=== PATIENT | female | born 1990 | race Caucasian/White ===

== ENCOUNTER 2017-05-22 09:55 | Emergency (ER) | payer BC, MEDICAID ==
[2017-05-22 10:01] VITALS: BP 142/95; PULSE 74; RESP 18; TEMP 97.6
--- NOTE | 2017-05-22 10:35 | ED ---
Allergic Reaction HPI - General Chief complaint: Allergic Reaction Stated complaint: facial swelling and kayla Time Seen by Provider: 05/22/17 10:12 Source: patient, RN notes reviewed Mode of arrival: ambulatory Limitations: no limitations - History of Present Illness Initial Comments: This is a 26-year-old female history presents with complaints of swelling to her lips and her eyelids. 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 She is not sure of anything new he thinks possibly latex ALLERGIES that she has problems with the banding around her underwear. She also states she reacts to Band-Aids when they are placed on her. She states she got better then after working started developing hives again. She's not sure what may be causing. She's never had this problem before. No family history of problems like this. MD Complaint: allergic reaction, hives, facial swelling - Related Data Home Medications Medication Instructions Recorded Confirmed Acyclovir [Zovirax] 400 mg PO QID 12/16/14 12/16/14 Citalopram Hydrobromide [CeleXA] 10 mg PO DAILY 12/16/14 12/16/14 Previous Rx's Medication Instructions Recorded Naproxen [Naprosyn] 500 mg PO Q12HR #30 tab 12/16/14 Orphenadrine [Norflex] 100 mg PO Q12H #20 tablet.er 12/16/14 hydrOXYzine PAMOATE [Vistaril] 25 mg PO TID PRN #15 cap 05/22/17 methylPREDNISolone Dose Pack 4 mg PO DIRECTED #21 package 05/22/17 [Medrol Dose Pack] Allergies Allergy/AdvReac Type Severity Reaction Status Date / Time No Known Allergies Allergy Verified 05/22/17 10:01 Review of Systems ROS Statement: Those systems with pertinent positive or pertinent negative responses have been documented in the HPI. ROS Other: All systems not noted in ROS Statement are negative. Past Medical History Additional Past Medical History / Comment(s): endometriosis, genital herpes History of Any Multi-Drug Resistant Organisms: None Reported Additional Past Surgical History / Comment(s): laparoscopy Past Psychological History: Depression Smoking Status: Never smoker Past Alcohol Use History: None Reported Past Drug Use History: None Reported General Exam - General Exam Comments Initial Comments: This is a well-developed well-nourished awake alert oriented 3 female Limitations: no limitations General appearance: alert, in no apparent distress Head exam: Present: atraumatic, normocephalic, normal inspection Eye exam: Present: PERRL, EOMI, other (The patient does demonstrate a small of periorbital swelling.) ENT exam: Present: normal oropharynx, mucous membranes moist, other (The upper and lower lip is somewhat edematous) Neck exam: Present: normal inspection, other (No stridor JVD or bruits) Respiratory exam: Present: normal lung sounds bilaterally. Absent: respiratory distress, wheezes, rales, rhonchi, stridor Cardiovascular Exam: Present: regular rate, normal rhythm, normal heart sounds. Absent: systolic murmur, diastolic murmur, rubs, gallop, clicks Extremities exam: Present: normal inspection, full ROM, normal capillary refill. Absent: tenderness, pedal edema, joint swelling, calf tenderness Back exam: Present: normal inspection Neurological exam: Present: alert, oriented X3, CN II-XII intact Psychiatric exam: Present: normal affect, normal mood Skin exam: Present: warm, dry, other (Evidence of first-degree sunburn to the chest extremities) Course Vital Signs 05/22/17 09:58 Temperature 97.6 F Pulse Rate 74 Respiratory 18 Rate Blood Pressure 142/95 O2 Sat by Pulse 100 Oximetry Medical Decision Making - Medical Decision Making No further workup is indicated at this time. The patient had previously been seen at [facility] and given prescriptions for Quynh and Zantac. Patient will also get a prescription from [place] a Medrol Dosepak as well as Vistaril for itching. She is follow-up with . they did ask about ALLERGY testing and they were referred to their family doctor or to an smash hand. We did also discuss cold versus hot environments. Disposition Clinical Impression: Allergic reaction Disposition: HOME SELF-CARE Condition: Good Instructions: Allergies (ED) Prescriptions: hydrOXYzine PAMOATE [Vistaril] 25 mg PO TID PRN #15 cap PRN Reason: Itching methylPREDNISolone Dose Pack [Medrol Dose Pack] 4 mg PO DIRECTED #21 package Referrals: Sandeep Muniz MD [Primary Care Provider] - 1-2 days
== END 2017-05-22 10:38 | disposition home or self-care (01) ==
LOC: EC 09:55
DX: T78.40XA Allergy, unspecified, initial encounter (principal); F32.9 Major depressive disorder, single episode, unspecified; Z79.899 Other long term (current) drug therapy; Z79.1 Long term (current) use of non-steroidal anti-inflammatories (NSAID); Z91.048 Other nonmedicinal substance allergy status
CPT/HCPCS: 99284

== ENCOUNTER → 2017-05-28 | Outpatient (CLI) | payer MEDICAID ==
[2017-05-28 14:04] LABS: Basophils % (A) 0 %; CH 26.5; CHCM 32.4; Eosinophils % (A) 0 %; HCT 37.1 % (34.0-46.0); HDW 2.34; HGB 12.6 gm/dL (11.4-16.0); Luc # (Auto) 0.17; Luc % (Auto) 2; Lymphocytes % (A) 34 %; MCH 27.9 pg (25.0-35.0); Mean Platelet Volume 6.8; Monocytes # (A) 0.5 k/uL (0-1.0); Monocytes % (A) 6 %; Neutrophils # (A) 5.1 k/uL (1.3-7.7); Neutrophils % (A) 58 %; RBC 4.53 m/uL (3.80-5.40); RDW 12.2 % (11.5-15.5); WBC 8.8 k/uL (3.8-10.6); WBC (Perox) 8.89
[2017-05-28 14:23] LABS: ALT 33 U/L (9-52); AST 29 U/L (14-36); Alkaline Phosphatase 59 U/L (38-126); Anion Gap 11 mmol/L; Blood Urea Nitrogen 9 mg/dL (7-17); Calcium 9.3 mg/dL (8.4-10.2); Carbon Dioxide 24 mmol/L (22-30); Chloride 105 mmol/L (98-107); Glucose 86 mg/dL (74-99); Non-African American GFR(MDRD) >60 (>60 ml/min/1.73 sqM); Potassium 4.6 mmol/L (3.5-5.1); Sodium 140 mmol/L (137-145); Total Bilirubin 0.3 mg/dL (0.2-1.3); Total Protein 6.7 g/dL (6.3-8.2)
[2017-05-31 13:07] LABS: Beef IgE <0.35 kU/L (<0.35); Beef IgE Class CLASS 0; Chicken IgE Class CLASS 0; Cow's Milk IgE Class CLASS 0; Egg White IgE <0.35 kU/L (<0.35); Latex IgE Class CLASS 0; Peanut IgE <0.35 kU/L (<0.35); Pork IgE Class CLASS 0; Potato IgE <0.35 kU/L (<0.35); Potato IgE Class CLASS 0; Soybean IgE <0.35 kU/L (<0.35); Yeast Bakers/Brew IgE <0.35 kU/L (<0.35); Yeast Bakers/Brew IgE Class CLASS 0
== END | disposition home or self-care (01) ==
LOC: LABWHC1 12:46
PROVIDERS: ATTEND Otolaryngology
DX: Z00.00 Encounter for general adult medical examination without abnormal findings (principal); L50.0 Allergic urticaria
CPT/HCPCS: 36415; 80053; 85025; 86003

== ENCOUNTER 2017-07-06 16:55 | Emergency (ER) | payer MEDICAID ==
[2017-07-06 17:00] VITALS: PULSE 83; TEMP 98.4
[2017-07-06] MEDS ORDERED: AMOXIC-POT CLAV 875-125MG 1 EACH TAB PO STA (17:06)
--- NOTE | 2017-07-06 17:08 | ED ---
Skin/Abscess/FB HPI - General Chief complaint: Skin/Abscess/Foreign Body Stated complaint: Dog Bite Time Seen by Provider: 07/06/17 17:01 Source: patient, RN notes reviewed Mode of arrival: ambulatory Limitations: no limitations - History of Present Illness Initial comments: This a 26-year-old female presented emergency department with chief complaint dog bite. Patient states that she was at a known house and states the dog bit her. Patient states she has a bite allie to her right hand fourth digit and to her left wrist. 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 Patient states that she has full range of motion of her digits with no paresthesias. Patient has NO KNOWN DRUG ALLERGIES. - Related Data Home Medications Medication Instructions Recorded Confirmed Acyclovir [Zovirax] 400 mg PO QID 12/16/14 12/16/14 Citalopram Hydrobromide [CeleXA] 10 mg PO DAILY 12/16/14 12/16/14 Previous Rx's Medication Instructions Recorded Naproxen [Naprosyn] 500 mg PO Q12HR #30 tab 12/16/14 Orphenadrine [Norflex] 100 mg PO Q12H #20 tablet.er 12/16/14 hydrOXYzine PAMOATE [Vistaril] 25 mg PO TID PRN #15 cap 05/22/17 methylPREDNISolone Dose Pack 4 mg PO DIRECTED #21 package 05/22/17 [Medrol Dose Pack] Amoxicillin/Potassium Clav 1 tab PO Q12HR #20 tab 07/06/17 [Augmentin 875-125 Tablet] Allergies Allergy/AdvReac Type Severity Reaction Status Date / Time No Known Allergies Allergy Verified 07/06/17 17:00 Review of Systems ROS Statement: Those systems with pertinent positive or pertinent negative responses have been documented in the HPI. ROS Other: All systems not noted in ROS Statement are negative. Past Medical History Additional Past Medical History / Comment(s): endometriosis, genital herpes History of Any Multi-Drug Resistant Organisms: None Reported Additional Past Surgical History / Comment(s): laparoscopy Past Psychological History: Depression Smoking Status: Never smoker Past Alcohol Use History: None Reported Past Drug Use History: None Reported General Exam General appearance: alert, in no apparent distress Head exam: Present: atraumatic, normocephalic, normal inspection Respiratory exam: Present: normal lung sounds bilaterally. Absent: respiratory distress, wheezes, rales, rhonchi, stridor Cardiovascular Exam: Present: regular rate, normal rhythm, normal heart sounds. Absent: systolic murmur, diastolic murmur, rubs, gallop, clicks Extremities exam: Present: other (Right hand fourth digit there is 2 puncture was noted to the distal tip patient's full range of motion Refill less than 2 seconds no discoloration no decreased sensation patient has a small superficial puncture wound noted to the left wrist patient has full range of motion no active bleeding) Course Vital Signs 07/06/17 16:58 Temperature 98.4 F Pulse Rate 83 Respiratory 137 H Rate O2 Sat by Pulse 100 Oximetry Medical Decision Making - Medical Decision Making 26-year-old female presented emergency department for dog bite. Her tetanus is up-to-date. The dog is not a stray and not loose. The patient states the dog can be observed and quarantine for signs and symptoms of rabies this is a low likelihood. Patient is advised that she needs to the dog bite form here and have close follow-up. Patient be discharged on Augmentin. Disposition Clinical Impression: Dog bite Disposition: HOME SELF-CARE Condition: Stable Instructions: Animal Bite (ED) Additional Instructions: Please return to the Emergency Department if symptoms worsen or any other concerns. Prescriptions: Amoxicillin/Potassium Clav [Augmentin 875-125 Tablet] 1 tab PO Q12HR #20 tab Referrals: Sandeep Muniz MD [Primary Care Provider] - 1-2 days Time of Disposition: 17:08
[2017-07-06 17:10] VITALS: BP 137/82; RESP 18
== END 2017-07-06 17:20 | disposition home or self-care (01) ==
LOC: EC 16:55
DX: S61.552A Open bite of left wrist, initial encounter (principal); S61.254A Open bite of right ring finger without damage to nail, initial encounter; F32.9 Major depressive disorder, single episode, unspecified; Z79.899 Other long term (current) drug therapy; W54.0XXA Bitten by dog, initial encounter
CPT/HCPCS: 99283

== ENCOUNTER → 2017-07-28 | Outpatient (CLI) | payer MEDICAID ==
[2017-07-28 14:27] LABS: Basophils % (A) 0 %; CH 27.2; CHCM 33.1; Eosinophils # (A) 0.1 k/uL (0-0.7); Eosinophils % (A) 1 %; Luc # (Auto) 0.14; Luc % (Auto) 2; Lymphocytes # (A) 2.3 k/uL (1.0-4.8); Lymphocytes % (A) 27 %; MCH 26.8 pg (25.0-35.0); MCHC 32.5 g/dL (31.0-37.0); MCV 82.5 fL (80.0-100.0); Monocytes # (A) 0.3 k/uL (0-1.0); Monocytes % (A) 4 %; Neutrophils # (A) 5.5 k/uL (1.3-7.7); Neutrophils % (A) 65 %; RBC 4.85 m/uL (3.80-5.40); RDW 14.9 % (11.5-15.5); WBC 8.4 k/uL (3.8-10.6); WBC (Perox) 8.03
[2017-07-28 16:01] LABS: Erythrocyte Sedimentation Rate 8 mm/hr (0-20)
[2017-07-29 00:45] LABS: Gliadin AB IgA, Deaminated NEGATIVE (NEGATIVE); Gliadin AB IgG, Deaminated NEGATIVE (NEGATIVE); Gliadin AB IgG, Unit <0.4 U/mL; Tis Transglutaminase IgA Unit <0.5 AI; Tis Transglutaminase IgG Unit <0.8 U/mL
== END | disposition home or self-care (01) ==
LOC: LABWHC1 13:45
PROVIDERS: ATTEND Allergy & Immunology
DX: K21.9 Gastro-esophageal reflux disease without esophagitis (principal); L50.8 Other urticaria
CPT/HCPCS: 36415; 82784; 83516; 85025; 85652; 86162; 86376; 86800

== ENCOUNTER 2017-09-30 22:35 | Emergency (ER) | payer MEDICAID, OTHER ==
[2017-09-30 22:46] VITALS: BP 127/72; PULSE 51; RESP 18; TEMP 98.3
[2017-09-30] MEDS ORDERED: IBUPROFEN 600 MG TAB PO STA (22:50)
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
--- NOTE | 2017-09-30 23:16 | XR ---
EXAMINATION TYPE: XR facial bones complete DATE OF EXAM: 09/30/2017 COMPARISON: NONE HISTORY: Facial injury and pain TECHNIQUE: 3 views FINDINGS: There is some mucosal thickening in the right maxillary sinus. Orbital margins appear intac t. Maxilla appears intact. Nasal bone appears intact. IMPRESSION: Mucosal thickening in the right maxillary sinus on the superior lateral and inferior wall s. This probably relates to sinusitis but a blowout fracture cannot be entirely excluded.
[2017-09-30] MEDS ORDERED: ONDANSETRON ODT 4 MG TAB PO STA (23:29)
== END 2017-09-30 23:39 | disposition home or self-care (01) ==
LOC: EC 22:35
DX: S00.83XA Contusion of other part of head, initial encounter (principal); F32.9 Major depressive disorder, single episode, unspecified; Z79.899 Other long term (current) drug therapy; Z88.1 Allergy status to other antibiotic agents; Y04.2XXA Assault by strike against or bumped into by another person, initial encounter; Y92.239 Unspecified place in hospital as the place of occurrence of the external cause; Y99.0 Civilian activity done for income or pay
CPT/HCPCS: 70150; 99283

== ENCOUNTER 2017-12-04 17:01 | Emergency (ER) | payer MEDICAID ==
[2017-12-04 17:20] VITALS: TEMP 97
--- NOTE | 2017-12-04 18:00 | US ---
EXAMINATION TYPE: US OB <=14 wks transvag DATE OF EXAM: 12/04/2017 COMPARISON: NONE CLINICAL HISTORY: 27-year-old female pain. Pt states heavy vaginal bleeding and cramping that started today EXAM PERFORMED: Transvaginal (TV) and Transabdominal (TA) FINDINGS: GESTATIONAL AGE / DATING Physician Established: Not yet established Dates by LMP: (6 weeks/2 days) EDC: 07/28/2018 Dates by First Scan: No prior Dates by Current Scan for: No IUP visualized MATERNAL ANATOMY Uterus: 7.4 x 3.6 x 4.2 cm Right Ovary: 3.0 x 2.1 x 2.8 cm Left Ovary: 2.0 x 1.5 x 1.1 cm Post CDS / Adnexa: wnl Presence of free fluid: No Presence of corpus luteal cyst: Right Ovary= 1.4 x 0.9 x 1.1 cm GESTATION / SURVEY IUP: No IUP seen at this time, Endo thickened at 1.5 cm Date of LMP: 10/21/2017 Beta HcG (if available): Not available at this time IMPRESSION: No visualized intrauterine at this time. Endometrial stripe measures at the upper limits of normal in thickness. Differential considerations include normal early intrauterine , failed , and nonvisualized ectopic. Recommended serial beta-hCG and ultrasound follow-up to ensure the appearance of a normal pole with cardiac activity.
--- NOTE | 2017-12-04 18:07 | ED ---
Female Urogenital HPI - General Chief complaint: Urogenital Stated complaint: Vaginal Bleeding, Cramping-6 wks preg Time Seen by Provider: 12/04/17 17:21 Source: patient, RN notes reviewed, old records reviewed Mode of arrival: ambulatory Limitations: no limitations - History of Present Illness Initial comments: Patient is a 27-year-old female presents today chief complaint of vaginal bleeding and spotting that started at 3 PM yesterday evening. She reports it's been croup progressively worse today and she complains of cramping. She reports that she is currently 6 weeks . She states she follows up with Dr. Malloy. She states that this is her first . Patient denies any chest pain, shortness of breath, nausea, vomiting, back pain, dysuria or hematuria or changes in bowel habits. - Related Data Home Medications Medication Instructions Recorded Confirmed Pnv No.95/Ferrous Fum/Folic AC 1 tab PO DAILY 12/04/17 12/04/17 [ Multivitamin Tablet] Previous Rx's Medication Instructions Recorded traMADol HCl [Ultram] 50 mg PO Q4H PRN #12 tab 12/04/17 Allergies Allergy/AdvReac Type Severity Reaction Status Date / Time vancomycin Allergy Swelling Verified 12/04/17 18:22 Review of Systems ROS Statement: Those systems with pertinent positive or pertinent negative responses have been documented in the HPI. ROS Other: All systems not noted in ROS Statement are negative. Past Medical History Additional Past Medical History / Comment(s): endometriosis, genital herpes History of Any Multi-Drug Resistant Organisms: None Reported Additional Past Surgical History / Comment(s): laparoscopy Past Psychological History: Depression Smoking Status: Never smoker Past Alcohol Use History: None Reported Past Drug Use History: None Reported General Exam - General Exam Comments Initial Comments: This is a 27-year-old female. Patient appears to be very distraught. Limitations: no limitations General appearance: alert Head exam: Present: atraumatic Eye exam: Present: normal appearance, PERRL, EOMI. Absent: scleral icterus, conjunctival injection, periorbital swelling ENT exam: Present: normal exam, mucous membranes moist Neck exam: Present: normal inspection. Absent: tenderness, meningismus, lymphadenopathy Respiratory exam: Present: normal lung sounds bilaterally. Absent: respiratory distress, wheezes, rales, rhonchi, stridor External exam: Present: normal external exam Speculum exam: Present: vaginal bleeding (Patient has significant vaginal bleeding, clots noted. Cervix appears somewhat dilated.). Absent: normal speculum exam, erythema, vaginal discharge By manual exam: Present: normal by manual exam. Absent: cervical motion tenderness, adnexal tenderness Extremities exam: Present: normal inspection Back exam: Present: normal inspection Neurological exam: Present: alert, oriented X3, CN II-XII intact Psychiatric exam: Present: normal affect, normal mood Skin exam: Present: warm, dry, intact, normal color. Absent: rash Course Vital Signs 12/04/17 12/04/17 17:15 19:41 Temperature 97.0 F L Pulse Rate 88 64 Respiratory 16 20 Rate Blood Pressure 127/70 117/56 O2 Sat by Pulse 100 99 Oximetry Medical Decision Making - Medical Decision Making Patient is a 27-year-old female presents today chief complaint of vaginal bleeding and spotting that started at 3 PM yesterday evening. She reports it's been croup progressively worse today and she complains of cramping. Patient hcg is 62. She has significant bleeding and clotting noted. Cervix appeared minimal dilation and clots through os during speculum exam. US shwos no IUP and thickened endometrium. Likely related to miscarriage. Patient is A - blood type , given rhogam. Discussed repeat Hcg. Discussed not typical number for 6 weeks in . Patient understands treatment plan and follow up with OBGYN. Return paramters discussed. Discharged with ultram for cramping pain. She also relates while in ED she passed large clot which she believes to be the fetus. - Lab Data Lab Results 12/04/17 12/04/17 12/04/17 Range/Units 17:50 17:50 18:45 HCG, Quant 69.2 mIU/mL Urine Color Yellow Urine Appearance Clear (Clear) Urine pH 8.0 (5.0-8.0) Ur Specific [place] 1.007 (1.001-1.035) Urine Protein Trace H (Negative) Urine Glucose (UA) Negative (Negative) Urine Ketones Negative (Negative) Urine Blood Large H (Negative) Urine Nitrite Negative (Negative) Urine Bilirubin Negative (Negative) Urine Urobilinogen <2.0 (<2.0) mg/dL Ur Leukocyte Esterase Trace H (Negative) Urine RBC >182 H (0-5) /hpf Ur Squamous Epith Cells 1 (0-4) /hpf Blood Type A Negative Blood Type Recheck No Antibody Screen NEGATIVE - Radiology Data Radiology results: report reviewed US shows thickened endometrium. No heart tones or IUP noted. Disposition Clinical Impression: Miscarriage Disposition: HOME SELF-CARE Condition: Good Instructions: Miscarriage (ED) Additional Instructions: Patient advised to follow-up with primary care physician and [employer]. Repeat her blood work in 2 days. Return to emergency department if any alarming signs or symptoms occur. Prescriptions: traMADol HCl [Ultram] 50 mg PO Q4H PRN #12 tab PRN Reason: Pain Referrals: Sandeep Muniz MD [Primary Care Provider] - 1-2 days Time of Disposition: 19:23
[2017-12-04 19:02] LABS: Appearance,Urine Clear (Clear); Bilirubin,Urine Negative (Negative); Blood,Urine Large (Negative); Color,Urine Yellow; Glucose,Urine (UA) Negative (Negative); Ketones,Urine Negative (Negative); Leukocyte Esterase,Urine Trace (Negative); Nitrite,Urine Negative (Negative); Protein,Urine Trace (Negative); RBC,Urine >182 /hpf (0-5); Specific Gravity,Urine 1.007 (1.001-1.035); Squamous Epithelial Cell,Urine 1 /hpf (0-4); Urobilinogen,Urine <2.0 mg/dL (<2.0)
[2017-12-04] MEDS ORDERED: MORPHINE SULFATE 5 MG/ML SYRINGE IVP STA (19:07)
[2017-12-04] MEDS ORDERED: Rhogam IMMUNE GLOBULIN 1,500 UNIT/1 ML IM ONE (19:41)
[2017-12-04 19:42] VITALS: BP 117/56; PULSE 64; RESP 20
== END 2017-12-04 19:50 | disposition home or self-care (01) ==
LOC: EC 17:01
DX: O03.9 Complete or unspecified spontaneous abortion without complication (principal); Z79.899 Other long term (current) drug therapy; Z88.1 Allergy status to other antibiotic agents
CPT/HCPCS: 99284; 96374; 96372; 36415; 86900; 86901; 86850; 81001; 84702; 76801; 76817; J2791; J2274

== ENCOUNTER → 2017-12-06 | Outpatient (CLI) | payer MEDICAID | END | disposition home or self-care (01) | LOC: LABWHC1 12:24 | PROVIDERS: ATTEND Physician Assistant Medical | DX: O20.0 Threatened abortion (principal) | CPT/HCPCS: 36415; 84702 ==

== ENCOUNTER → 2017-12-13 | Outpatient (CLI) | payer MEDICAID | END | disposition home or self-care (01) | LOC: LABWHC1 10:57 | PROVIDERS: ATTEND Obstetrics & Gynecology Obstetrics | DX: O03.9 Complete or unspecified spontaneous abortion without complication (principal) | CPT/HCPCS: 36415; 84702 ==

== ENCOUNTER → 2018-02-14 | Outpatient (CLI) | payer MEDICAID | END | disposition home or self-care (01) | LOC: LABWHC1 10:36 | PROVIDERS: ATTEND Obstetrics & Gynecology Obstetrics | DX: O20.0 Threatened abortion (principal); Z3A.00 Weeks of gestation of pregnancy not specified | CPT/HCPCS: 36415; 84702 ==

== ENCOUNTER → 2018-03-15 | Outpatient (CLI) | payer MEDICAID | END | disposition home or self-care (01) | LOC: LABWHC1 09:45 | PROVIDERS: ATTEND Obstetrics & Gynecology Obstetrics | DX: O20.0 Threatened abortion (principal); O26.20 Pregnancy care for patient with recurrent pregnancy loss, unspecified trimester; Z3A.00 Weeks of gestation of pregnancy not specified | CPT/HCPCS: 36415; 84144; 84702 ==

== ENCOUNTER → 2018-03-17 | Outpatient (CLI) | payer MEDICAID | LOC: LABWHC1 07:46 | PROVIDERS: ATTEND Obstetrics & Gynecology Obstetrics | DX: O20.0 Threatened abortion (principal); Z3A.00 Weeks of gestation of pregnancy not specified | CPT/HCPCS: 36415; 84702 ==

== ENCOUNTER → 2018-03-21 | Outpatient (CLI) | payer MEDICAID | END | disposition home or self-care (01) | LOC: LABWHC1 15:37 | PROVIDERS: ATTEND Obstetrics & Gynecology Obstetrics | DX: O20.0 Threatened abortion (principal); Z3A.00 Weeks of gestation of pregnancy not specified | CPT/HCPCS: 36415; 84702 ==

== ENCOUNTER 2018-03-28 07:52 | Emergency (ER) | payer MEDICAID ==
[2018-03-28 07:56] VITALS: RESP 18; TEMP 97.3
--- NOTE | 2018-03-28 08:19 | ED ---
General Adult HPI - General Chief complaint: Abdominal Pain Stated complaint: 6wks preg, cramping Time Seen by Provider: 03/28/18 08:12 Source: patient, RN notes reviewed, old records reviewed Mode of arrival: ambulatory Limitations: no limitations - History of Present Illness Initial comments: 27-year-old female presenting to the emergency room today with a chief complaint of right sided abdominal pain on and off for last few days. She describes it as an intermittent type pain located on the right side has been more constant since 1 AM last night. 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 She states that she did have a miscarriage at approximately 6 weeks back in November 2017. She states last menstrual cycle She is approximately 6 weeks . Denies vaginal bleeding or discharge. Denies any other complaints. Patient denies any recent fever, chills, shortness of breath, chest pain, back pain, nausea or vomiting, numbness or tingling, dysuria or hematuria, constipation or diarrhea, headaches or visual changes, or any other complaints. - Related Data Home Medications Medication Instructions Recorded Confirmed Pnv No.95/Ferrous Fum/Folic AC 1 tab PO DAILY 12/04/17 03/28/18 [ Multivitamin Tablet] Allergies Allergy/AdvReac Type Severity Reaction Status Date / Time vancomycin Allergy Swelling Verified 03/28/18 08:36 Review of Systems ROS Statement: Those systems with pertinent positive or pertinent negative responses have been documented in the HPI. ROS Other: All systems not noted in ROS Statement are negative. Past Medical History Additional Past Medical History / Comment(s): endometriosis, genital herpes History of Any Multi-Drug Resistant Organisms: None Reported Additional Past Surgical History / Comment(s): laparoscopy Past Psychological History: Depression Smoking Status: Never smoker Past Alcohol Use History: None Reported Past Drug Use History: None Reported General Exam - General Exam Comments Initial Comments: General: The patient is awake and alert, in no distress, and does not appear acutely ill. Eye: Pupils are equal, round and reactive to light, extra-ocular movements are intact. No nystagmus. There is normal conjunctiva bilaterally. No signs of icterus. Ears, nose, mouth and throat: There are moist mucous membranes and no oral lesions. Neck: The neck is supple. Cardiovascular: There is a regular rate and rhythm. No murmur, rub or gallop is appreciated. Respiratory: Lungs are clear to auscultation, respirations are non-labored, breath sounds are equal. No wheezes, stridor, rales, or rhonchi. Gastrointestinal: Abdomen soft on palpation. Mild tenderness on palpation. No rebound, guarding, CVA tenderness Musculoskeletal: Normal ROM, no tenderness. Strength 5/5. Sensation intact. Neurological: A&O x 3. CN II-XII intact, There are no obvious motor or sensory deficits. Coordination appears grossly intact. Speech is normal. Skin: Skin is warm and dry and no rashes or lesions are noted. Psychiatric: Cooperative, appropriate mood & affect, normal judgment. Limitations: no limitations Course Vital Signs 03/28/18 07:53 Temperature 97.3 F L Pulse Rate 93 Respiratory 18 Rate Blood Pressure 129/85 O2 Sat by Pulse 99 Oximetry Medical Decision Making - Medical Decision Making Patient has been reviewed discharge negative. Patient has no vaginal bleeding. Patient has 13,000 white count. Patient's beta hCG greater than 9000. Patient's ultrasound shows a 1.5 cm hypoechoic lesion surrounding right ovary vasculitic could reflect or persistent luteal cyst. Left excessive there is a 1.7 cm oval anechoic lesion adjacent to the ovary. Findings could reflect early to visual intrauterine gestation, ectopic cannot be excluded. Results were discussed with the physician Dr. Elmore who discussed with patient 's OB doctor Chris with this time states the patient may follow-up in the office tomorrow. These results were discussed with patient. Her pain is under control here in emergency room. Abdomen soft on palpation. Minimal to no pain on palpation. Patient advised that should return to emergency room if there is increased pain, bleeding. She states understanding and is in agreement. - Lab Data Result diagrams: 03/28/18 08:24 03/28/18 08:24 Lab Results 03/28/18 03/28/18 03/28/18 Range/Units 08:00 08:00 08:24 WBC (3.8-10.6) k/uL RBC (3.80-5.40) m/uL Hgb (11.4-16.0) gm/dL Hct (34.0-46.0) % MCV (80.0-100.0) fL MCH (25.0-35.0) pg MCHC (31.0-37.0) g/dL RDW (11.5-15.5) % Plt Count (150-450) k/uL Neutrophils % % Lymphocytes % % Monocytes % % Eosinophils % % Basophils % % Neutrophils # (1.3-7.7) k/uL Lymphocytes # (1.0-4.8) k/uL Monocytes # (0-1.0) k/uL Eosinophils # (0-0.7) k/uL Basophils # (0-0.2) k/uL Sodium (137-145) mmol/L Potassium (3.5-5.1) mmol/L Chloride (98-107) mmol/L Carbon Dioxide (22-30) mmol/L Anion Gap mmol/L BUN (7-17) mg/dL Creatinine (0.52-1.04) mg/dL Est GFR (CKD-EPI)AfAm (>60 ml/min/1.73 sqM) Est GFR (CKD-EPI)NonAf (>60 ml/min/1.73 sqM) Glucose (74-99) mg/dL Calcium (8.4-10.2) mg/dL Total Bilirubin (0.2-1.3) mg/dL AST (14-36) U/L ALT (9-52) U/L Alkaline Phosphatase (38-126) U/L Total Protein (6.3-8.2) g/dL Albumin (3.5-5.0) g/dL HCG, Quant 9786.3 mIU/mL Urine Color Light Yellow Urine Appearance Clear (Clear) Urine pH 6.0 (5.0-8.0) Ur Specific [place] 1.008 (1.001-1.035) Urine Protein Negative (Negative) Urine Glucose (UA) Negative (Negative) Urine Ketones Negative (Negative) Urine Blood Negative (Negative) Urine Nitrite Negative (Negative) Urine Bilirubin Negative (Negative) Urine Urobilinogen <2.0 (<2.0) mg/dL Ur Leukocyte Esterase Negative (Negative) Blood Type A Negative Blood Type Recheck No 03/28/18 03/28/18 Range/Units 08:24 08:24 WBC 13.2 H (3.8-10.6) k/uL RBC 4.49 (3.80-5.40) m/uL Hgb 12.8 (11.4-16.0) gm/dL Hct 36.7 (34.0-46.0) % MCV 81.6 (80.0-100.0) fL MCH 28.5 (25.0-35.0) pg MCHC 34.9 (31.0-37.0) g/dL RDW 12.7 (11.5-15.5) % Plt Count 339 (150-450) k/uL Neutrophils % 69 % Lymphocytes % 23 % Monocytes % 5 % Eosinophils % 2 % Basophils % 0 % Neutrophils # 9.1 H (1.3-7.7) k/uL Lymphocytes # 3.0 (1.0-4.8) k/uL Monocytes # 0.6 (0-1.0) k/uL Eosinophils # 0.2 (0-0.7) k/uL Basophils # 0.0 (0-0.2) k/uL Sodium 139 (137-145) mmol/L Potassium 4.4 (3.5-5.1) mmol/L Chloride 104 (98-107) mmol/L Carbon Dioxide 22 (22-30) mmol/L Anion Gap 13 mmol/L BUN 9 (7-17) mg/dL Creatinine 0.67 (0.52-1.04) mg/dL Est GFR (CKD-EPI)AfAm >90 (>60 ml/min/1.73 sqM) Est GFR (CKD-EPI)NonAf >90 (>60 ml/min/1.73 sqM) Glucose 90 (74-99) mg/dL Calcium 9.2 (8.4-10.2) mg/dL Total Bilirubin 0.4 (0.2-1.3) mg/dL AST 25 (14-36) U/L ALT 26 (9-52) U/L Alkaline Phosphatase 53 (38-126) U/L Total Protein 6.9 (6.3-8.2) g/dL Albumin 4.2 (3.5-5.0) g/dL HCG, Quant mIU/mL Urine Color Urine Appearance (Clear) Urine pH (5.0-8.0) Ur Specific [place] (1.001-1.035) Urine Protein (Negative) Urine Glucose (UA) (Negative) Urine Ketones (Negative) Urine Blood (Negative) Urine Nitrite (Negative) Urine Bilirubin (Negative) Urine Urobilinogen (<2.0) mg/dL Ur Leukocyte Esterase (Negative) Blood Type Blood Type Recheck Disposition Clinical Impression: Threatened miscarriage Disposition: HOME SELF-CARE Condition: Stable Instructions: Threatened Miscarriage (ED) Additional Instructions: Please follow-up with [employer] tomorrow as discussed. Please return here to the emergency room if there is increased bowel pain, bleeding or for any other concerns. Is patient prescribed a controlled substance at d/c from ED?: No Referrals: Sandeep Muniz MD [Primary Care Provider] - 1-2 days Time of Disposition: 10:19
[2018-03-28 08:31] LABS: Appearance,Urine Clear (Clear); Bilirubin,Urine Negative (Negative); Blood,Urine Negative (Negative); Color,Urine Light Yellow; Glucose,Urine (UA) Negative (Negative); Ketones,Urine Negative (Negative); Leukocyte Esterase,Urine Negative (Negative); Nitrite,Urine Negative (Negative); Protein,Urine Negative (Negative); Specific Gravity,Urine 1.008 (1.001-1.035); Urobilinogen,Urine <2.0 mg/dL (<2.0)
[2018-03-28 08:36] LABS: Basophils % (A) 0 %; Eosinophils # (A) 0.2 k/uL (0-0.7); Eosinophils % (A) 2 %; HCT 36.7 % (34.0-46.0); HGB 12.8 gm/dL (11.4-16.0); Lymphocytes % (A) 23 %; MCH 28.5 pg (25.0-35.0); MCHC 34.9 g/dL (31.0-37.0); MCV 81.6 fL (80.0-100.0); Mean Platelet Volume 7.8; Monocytes # (A) 0.6 k/uL (0-1.0); Monocytes % (A) 5 %; Neutrophils # (A) 9.1 k/uL (1.3-7.7); Neutrophils % (A) 69 %; Platelet Count 339 k/uL (150-450); RBC 4.49 m/uL (3.80-5.40); RDW 12.7 % (11.5-15.5); WBC 13.2 k/uL (3.8-10.6)
[2018-03-28 08:50] LABS: ALT 26 U/L (9-52); AST 25 U/L (14-36); Albumin 4.2 g/dL (3.5-5.0); Alkaline Phosphatase 53 U/L (38-126); Anion Gap 13 mmol/L; Blood Urea Nitrogen 9 mg/dL (7-17); Calcium 9.2 mg/dL (8.4-10.2); Carbon Dioxide 22 mmol/L (22-30); Chloride 104 mmol/L (98-107); Glucose 90 mg/dL (74-99); Potassium 4.4 mmol/L (3.5-5.1); Sodium 139 mmol/L (137-145); Total Bilirubin 0.4 mg/dL (0.2-1.3); Total Protein 6.9 g/dL (6.3-8.2)
--- NOTE | 2018-03-28 09:24 | US ---
EXAMINATION TYPE: Transabdominal DATE OF EXAM: 02/15/18 COMPARISON: NONE CLINICAL HISTORY: Pain. Intermittent right pelvic cramping for a couple of days EXAM PERFORMED: Transvaginal (TV) and Transabdominal (TA) EXAM MEASUREMENTS: GESTATIONAL AGE / DATING Physician Established: Not yet established Dates by LMP: (6 weeks/1 days) EDC: 11/20/18 Dates by First Scan: No previous this is first scan Dates by Current Scan for: GS too small to accurately measure MATERNAL ANATOMY Uterus: 8.2 x 3.4 x 5.7cm Right Ovary: 4.4 x 2.6 x 2.4cm Left Ovary: 2.7 x 1.1 x 1.3cm Post CDS / Adnexa: small amount of free fluid right adnexa adjacent to right ovary. anechoic area lef t adnexa posterior to uterus = 1.7 x 1.6 x 1.4cm Presence of free fluid: yes Presence of corpus luteal cyst: yes, complex area right ovary = 2.5 x 1.9 x 2.2cm GESTATION / SURVEY MSD: 0.8cm too small to accurately measure Yolk Sac (normal less than 6mm): 1.7mm Date of LMP: 02/13/18 Beta HcG (if available): Not available at this time Anteverted uterus is seen. Within uterus there is oval anechoic area that has rim hyperechoic [address] ructure. Findings could reflect early gestational sac and yolk sac. No pole is seen at this jenn e. Inferior to gestational sac there is small 5 mm hypoechoic area could reflect tiny subchorionic he morrhage. There is free fluid in pelvis extending towards right adnexa. Both ovaries are identified. In the right ovary there is 1.5 cm cm oval hypoechoic lesion with surrou nding vascularity could reflect corpus luteal cyst. In the left adnexa there is 1.7 cm oval anechoic lesion adjacent to ovary.. IMPRESSION: Abnormal study as detailed above, findings could reflect early to visualize intrauterine gestation, e ctopic cannot be excluded with free fluid in pelvis and left adnexal extraovarian mass or t hin-walled cystic lesion. Spontaneous is in differential. Short-term beta hCG follow-up and ultrasound is advised.
[2018-03-28 10:27] VITALS: BP 117/71; PULSE 62
== END 2018-03-28 10:26 | disposition home or self-care (01) ==
LOC: EC 07:52
DX: O20.0 Threatened abortion (principal); Z3A.01 Less than 8 weeks gestation of pregnancy; Z88.1 Allergy status to other antibiotic agents
CPT/HCPCS: 36415; 76801; 76817; 80053; 81003; 84702; 85025; 86900; 86901; 87086; 99284

== ENCOUNTER 2018-05-05 00:51 | Emergency (ER) | payer MEDICAID, OTHER ==
[2018-05-05 00:58] VITALS: BP 130/81; PULSE 66; RESP 18; TEMP 98.4
--- NOTE | 2018-05-05 02:00 | ED ---
General Adult HPI - General Chief complaint: Needlestick/Exposure Stated complaint: Needle stick-[facility] Time Seen by Provider: 05/05/18 01:49 Source: patient Mode of arrival: ambulatory Limitations: no limitations - History of Present Illness Initial comments: 27-year-old female patient presents to emergency department today for evaluation after sustaining a needlestick injury at work. Patient states that she was reduced moving of patients [employer] access when she slipped and scraped her finger with a needle. Patient states the area did bleed. States she did wash it immediately. Patient is unsure whether the source has any known infectious diseases. They were able to obtain source samples for blood work. She does believe her immunizations are up-to-date. Patient is 11 weeks . Denies any other injuries or concerns. - Related Data Home Medications Medication Instructions Recorded Confirmed Pnv No.95/Ferrous Fum/Folic AC 1 tab PO DAILY 12/04/17 03/28/18 [ Multivitamin Tablet] Allergies Allergy/AdvReac Type Severity Reaction Status Date / Time vancomycin Allergy Swelling Verified 05/05/18 00:58 Review of Systems ROS Statement: Those systems with pertinent positive or pertinent negative responses have been documented in the HPI. ROS Other: All systems not noted in ROS Statement are negative. Past Medical History Additional Past Medical History / Comment(s): endometriosis, genital herpes, History of Any Multi-Drug Resistant Organisms: None Reported Additional Past Surgical History / Comment(s): laparoscopy, Past Psychological History: Depression Smoking Status: Never smoker Past Alcohol Use History: None Reported Past Drug Use History: None Reported General Exam Limitations: no limitations General appearance: alert, in no apparent distress, other (This is a well- developed, well-nourished adult female patient in no acute distress. Vital signs upon presentation are temperature 98.4F, pulse 66, respirations 18, blood pressure 130/81, pulse ox 98% on room air.) Respiratory exam: Present: normal lung sounds bilaterally. Absent: respiratory distress, wheezes, rales, rhonchi, stridor Cardiovascular Exam: Present: regular rate, normal rhythm, normal heart sounds. Absent: systolic murmur, diastolic murmur, rubs, gallop, clicks GI/Abdominal exam: Present: soft, normal bowel sounds. Absent: distended, tenderness, guarding, rebound, rigid Neurological exam: Present: alert, oriented X3, CN II-XII intact Psychiatric exam: Present: normal affect, normal mood Skin exam: Present: warm, dry, intact, normal color. Absent: rash Course Vital Signs 05/05/18 00:54 Temperature 98.4 F Pulse Rate 66 Respiratory 18 Rate Blood Pressure 130/81 O2 Sat by Pulse 98 Oximetry Medical Decision Making - Medical Decision Making 27-year-old female patient presented to the emergency department today for evaluation after needlestick injury at work. We will obtain routine lab testing. Patient is up-to-date on immunizations. She is 11 weeks but has no abdominal symptoms. Source blood was obtained and will be tested. Patient is anxious to return to work we will call and notify her with results. She is instructed to follow-up with employee health services for further evaluation and testing. Return parameters discussed in detail. She verbalizes understanding and agrees with this plan. Note: Patient was called and informed of source being negative for HIV. Disposition Clinical Impression: Needlestick injury accident with exposure to body fluid Disposition: HOME SELF-CARE Condition: Good Instructions: Body Substance Exposure (ED) Additional Instructions: Follow-up with employee health services for all results and repeat testing information. Monitor area for signs or symptoms of infection. Return here immediately for any new, worsening, or concerning symptoms. Is patient prescribed a controlled substance at d/c from ED?: No Referrals: Sandeep Muniz MD [Primary Care Provider] - 1-2 days Time of Disposition: 01:59
== END 2018-05-05 02:24 | disposition home or self-care (01) ==
LOC: EC 00:51
DX: O9A.211 Injury, poisoning and certain other consequences of external causes complicating pregnancy, first trimester (principal); S60.411A Abrasion of left index finger, initial encounter; Z79.899 Other long term (current) drug therapy; Z88.1 Allergy status to other antibiotic agents; Z3A.11 11 weeks gestation of pregnancy; W46.0XXA Contact with hypodermic needle, initial encounter; Y93.89 Activity, other specified; Y92.238 Other place in hospital as the place of occurrence of the external cause; Y99.0 Civilian activity done for income or pay
CPT/HCPCS: 99282

== ENCOUNTER 2018-09-12 22:03 | Outpatient (CLI) | payer MEDICAID ==
[2018-09-12 22:41] VITALS: BP 126/76; PULSE 101; RESP 16; TEMP 97.5
--- NOTE | 2018-09-24 10:25 | P.MSEPDOC ---
Presenting Problems - Arrival Data Date of Arrival on Unit: 09/12/18 Time of Arrival on Unit: 22:03 Mode of Transport: Ambulatory - Complaint OB-Reason for Admission/Chief Complaint: Decreased Movement Medical History - Information : 2 Para: 0 Term: 0 : 0 Abortions: Spontaneous or Elective: 0 Number of Living Children: 0 - Gestational Age Gestational Age by MELISA (wks/days): 30 Weeks and 1 Days Review of Systems - Review of Systems Constitutional: No problems Breast: No problems ENT: No problems Cardiovascular: No problems Respiratory: No problems Gastrointestinal: No problems Genitourinary: No problems Musculoskeletal: No problems Neurological: No problems Skin: No problems Vital Signs - Temperature Temperature: 97.5 F Temperature Source: Temporal Artery Scan - Pulse Right Brachial Pulse Rate: 101 Pulse Assessment Method: Automatic Cuff - Respirations Respiratory Rate: 16 Oxygen Delivery Method: Room Air O2 Sat by Pulse Oximetry: 99 - Blood Pressure Right Arm Blood Pressure: 126/76 Blood Pressure Mean: 92 Blood Pressure Source: Automatic Cuff Medical Screen Scoring (Pre) - Cervical Exam Dilation: Exam Deferred Effacement: Exam Deferred Membranes: Intact - Uterine Contractions Frequency: N/A - Assessment Baseline FHR: 125 Heart Rate - NICHD Category: Category I (Normal) = 0 NST: Reactive Position: N/A Station: N/A - Total Score Total Score (Pre): 0 - Level of Risk Level of Risk: Low (0-5) Physician Notification (Pre) - Physician Notified Physician Notified Date: 09/12/18 Physician Notified Time: 22:30 Physician/Practitioner Notifed:: Dr. De Leon Spoke With: Dr. De Leon New Order Received: Yes - Notification Comment Comment: Dr. De Leon called and given report on pt in triage. VS wnl. Moderate. variability. movement noted visually and audibly. Orders recieved to d/c pt to. home once nst reactive. Disposition - Disposition OB Disposition: Discharge to home Discharge Date: 09/12/18 Discharge Time: 22:40 I agree with the RN Medical Screening Exam: Yes Risk & Benefit of care provided described in d/c instruction: Yes Diagnosis: DECREASED MOVEMENTS, THIRD TRIMESTER, FETUS 1
== END 2018-09-12 22:40 | disposition home or self-care (01) ==
LOC: FBPOP 22:03
PROVIDERS: ATTEND Obstetrics & Gynecology
DX: O36.8131 Decreased fetal movements, third trimester, fetus 1 (principal); Z3A.30 30 weeks gestation of pregnancy
CPT/HCPCS: 59025; 99213

== ENCOUNTER 2018-11-06 14:12 | Outpatient (CLI) | payer MEDICAID ==
[2018-11-06] MEDS: LACTATED RINGERS 1,000 ML IV SCH ×2 (14:40→15:08)
[2018-11-06 14:56] VITALS: BP 132/73; PULSE 109; RESP 16; TEMP 98.3
[2018-11-06 15:23] LABS: Appearance,Urine Cloudy (Clear); Bacteria,Urine Occasional /hpf; Bilirubin,Urine Negative (Negative); Blood,Urine Negative (Negative); Color,Urine Yellow; Glucose,Urine (UA) Negative (Negative); Ketones,Urine Negative (Negative); Leukocyte Esterase,Urine Moderate (Negative); Mucus,Urine Many /hpf; Nitrite,Urine Negative (Negative); PH, Urine 6.5 (5.0-8.0); Protein,Urine 1+ (Negative); RBC,Urine 2 /hpf (0-5); Specific Gravity,Urine 1.026 (1.001-1.035); Squamous Epithelial Cell,Urine 19 /hpf (0-4); WBC,Urine 6 /hpf (0-5)
--- NOTE | 2018-12-10 11:53 | P.MSEPDOC ---
Presenting Problems - Arrival Data Date of Arrival on Unit: 11/06/18 Time of Arrival on Unit: 14:15 Mode of Transport: Ambulatory - Complaint OB-Reason for Admission/Chief Complaint: Acute Nausea/Vomiting Medical History - Information : 1 Para: 0 - Gestational Age Gestational Age by MELISA (wks/days): 38 Weeks and 0 Days Review of Systems - Review of Systems Constitutional: No problems Breast: No problems ENT: No problems Cardiovascular: No problems Respiratory: No problems Gastrointestinal: No problems Genitourinary: No problems Musculoskeletal: No problems Neurological: No problems Skin: No problems Vital Signs - Temperature Temperature: 98.3 F Temperature Source: Temporal Artery Scan - Pulse Right Sitting Brachial Pulse Rate: 109 Pulse Assessment Method: Automatic Cuff - Respirations Respiratory Rate: 16 Oxygen Delivery Method: Room Air O2 Sat by Pulse Oximetry: 98 - Blood Pressure Right Arm Sitting Blood Pressure: 132/73 Blood Pressure Mean: 92 Blood Pressure Source: Automatic Cuff Medical Screen Scoring (Pre) - Cervical Exam Dilation: Exam Deferred Effacement: Exam Deferred - Uterine Contractions Frequency: N/A Duration: N/A Intensity: N/A - Maternal Vital Signs Maternal Temperature: N/A Maternal Blood Pressure: N/A Signs of Preeclampsia: N/A Maternal Respirations: N/A - Pain Assessment Pain Location and Character: Generalized, Abdomen Pain Scale Used: Numeric (1 - 10) Pain Intensity: 5 Pain Management Goal: 0 Pain Description: Aching Pain Radiation Location: 0 Pain Frequency: Constant Pain Duration: 12 Pain Duration Units: Hours Pain Behavior: None Exhibited Effects of Pain: 0 Pain Aggravating Factors: None Non-Pharmacological Interventions: Darkened Room - Maternal Trauma Maternal Trauma: N/A - Assessment Baseline FHR: 170 Heart Rate - NICHD Category: Category I (Normal) = 0 NST: Non-reactive = 3 Position: N/A Station: N/A - Total Score Total Score (Pre): 3 - Level of Risk Level of Risk: Low (0-5) Physician Notification (Pre) - Physician Notified Physician Notified Date: 11/06/18 Physician Notified Time: 15:30 Physician/Practitioner Notifed:: Dr De Leon Spoke With: Dr De Leon New Order Received: Yes - Notification Comment Comment: discharge after iv hydration Disposition - Disposition OB Disposition: Discharge to home Discharge Date: 11/06/18 Discharge Time: 16:38 I agree with the RN Medical Screening Exam: Yes Risk & Benefit of care provided described in d/c instruction: Yes Diagnosis: DEHYDRATION
== END 2018-11-06 16:38 | disposition home or self-care (01) ==
LOC: FBPOP 14:12
PROVIDERS: ATTEND Obstetrics & Gynecology
DX: O99.283 Endocrine, nutritional and metabolic diseases complicating pregnancy, third trimester (principal); E86.0 Dehydration; Z3A.38 38 weeks gestation of pregnancy
CPT/HCPCS: 59025; 81001; 96360; 96361; 96365; 99214

== ENCOUNTER 2018-11-10 09:56 | Inpatient (IN) | payer MEDICAID ==
[2018-11-10] MEDS ORDERED: METHYLERGONOVINE 0.2 MG/ML 1 ML AMP IM PRN (10:13)
[2018-11-10] MEDS ORDERED: LIDOCAINE 0.5% (PF) 5 MG/ML (50 ML SDV) SQ PRN (10:13)
[2018-11-10] MEDS ORDERED: TERBUTALINE 1 MG/ML VIAL SQ PRN (10:13)
[2018-11-10] MEDS ORDERED: OXYTOCIN 10 UNIT/ML 1 ML VIAL IM PRN (10:13)
[2018-11-10] MEDS ORDERED: CARBOPROST TROMETHAMINE 250 MCG/ML 1 ML AMP IM PRN (10:13)
[2018-11-10] MEDS: LACTATED RINGERS 1,000 ML IV SCH ×2 (10:15→18:16)
[2018-11-10 11:00] LABS: ALT 46 U/L (9-52); AST 48 U/L (14-36); Basophils % (A) 0 %; Blood Urea Nitrogen 5 mg/dL (7-17); Eosinophils # (A) 0.1 k/uL (0-0.7); Eosinophils % (A) 1 %; HGB 10.6 gm/dL (11.4-16.0); Hypochromasia Slight; LDH 647 U/L (313-618); Lymphocytes # (A) 1.5 k/uL (1.0-4.8); Lymphocytes % (A) 15 %; MCH 25.7 pg (25.0-35.0); MCV 80.4 fL (80.0-100.0); Mean Platelet Volume 7.1; Monocytes # (A) 0.3 k/uL (0-1.0); Monocytes % (A) 3 %; Neutrophils # (A) 7.5 k/uL (1.3-7.7); Neutrophils % (A) 78 %; Platelet Count 319 k/uL (150-450); RBC 4.11 m/uL (3.80-5.40); RDW 14.3 % (11.5-15.5); Uric Acid 5.2 mg/dL (3.7-7.4); WBC 9.6 k/uL (3.8-10.6)
[2018-11-10 11:03] LABS: Appearance,Urine Cloudy (Clear); Bacteria,Urine Rare /hpf; Bilirubin,Urine Negative (Negative); Blood,Urine Negative (Negative); Calcium Oxalate Crystals,Urine Moderate /hpf; Color,Urine Yellow; Glucose,Urine (UA) Negative (Negative); Ketones,Urine Negative (Negative); Leukocyte Esterase,Urine Moderate (Negative); Mucus,Urine Rare /hpf; Nitrite,Urine Negative (Negative); Protein,Urine Trace (Negative); Specific Gravity,Urine 1.012 (1.001-1.035); Squamous Epithelial Cell,Urine 4 /hpf (0-4); Urobilinogen,Urine <2.0 mg/dL (<2.0); WBC,Urine 5 /hpf (0-5)
[2018-11-10] MEDS: OXYTOCIN 20 UNITS/1000 ML NS 1,000 ML IV SCH (11:25)
[2018-11-10 11:46] LABS: INR 0.8 (<1.2); Partial Thromboplastin Time 22.6 sec (22.0-30.0); Prothrombin Time 9.3 sec (9.0-12.0)
[2018-11-10 12:00] VITALS: BMI 34.2
[2018-11-10 16:52] LABS: Basophils % (A) 0 %; Eosinophils # (A) 0.1 k/uL (0-0.7); Eosinophils % (A) 1 %; HCT 35.3 % (34.0-46.0); HGB 11.4 gm/dL (11.4-16.0); Lymphocytes % (A) 18 %; MCH 26.1 pg (25.0-35.0); MCHC 32.1 g/dL (31.0-37.0); MCV 81.2 fL (80.0-100.0); Mean Platelet Volume 7.2; Monocytes # (A) 0.4 k/uL (0-1.0); Monocytes % (A) 4 %; Neutrophils # (A) 8.6 k/uL (1.3-7.7); Neutrophils % (A) 76 %; Platelet Count 310 k/uL (150-450); RBC 4.35 m/uL (3.80-5.40); RDW 14.4 % (11.5-15.5); WBC 11.3 k/uL (3.8-10.6)
[2018-11-10] MEDS ORDERED: DINOPROSTONE 10 MG INSERT.ER VAGINAL ONE (16:55)
[2018-11-10 16:59] LABS: ALT 47 U/L (9-52); AST 47 U/L (14-36); Blood Urea Nitrogen 4 mg/dL (7-17); LDH 573 U/L (313-618); Uric Acid 5.2 mg/dL (3.7-7.4)
--- NOTE | 2018-11-10 17:31 | P.HPOB ---
History of Present Illness H&P Date: 11/10/18 Chief Complaint: IUP at 38 and 4/sevenths weeks, gestational hypertension This is a 27-year-old 1 para 0 at 38 and 4/7 weeks that presented to the office today for routine visit. Blood pressure was noted to be 140s over 90s patient is complaining of a severe headache unrelieved with Tylenol. she denies RUQ pain, or visual changes, of note she had a 6 pound weight gain since her last visit 1 week ago. Significant lower extremity swelling was noted. Patient was sent to labor and delivery for induction of labor secondary to gestational hypertension, rule out preeclampsia. Patient has been receiving routine care with myself. On blood work showed a blood type of A-, rubella immune, RPR nonreactive, hepatitis B surface antigen negative, HIV negative she did receive her T In immunization on 09/15. GBS was negative on 10/19/2018 Review of Systems Constitutional: Reports fatigue, Denies chills, Denies fever Ears, nose, mouth and throat: Reports headache Cardiovascular: Reports leg edema Respiratory: Denies cough, Denies dyspnea Gastrointestinal: Denies constipation, Denies diarrhea, Denies nausea, Denies vomiting Genitourinary: Reports Past Medical History Additional Past Medical History / Comment(s): endometriosis, genital herpes, History of Any Multi-Drug Resistant Organisms: None Reported Additional Past Surgical History / Comment(s): laparoscopy, Past Psychological History: Depression Smoking Status: Never smoker Past Alcohol Use History: None Reported Past Drug Use History: None Reported - Past Family History Mother History Unknown: Yes Family Medical History: No Reported History Additional Family Medical History / Comment(s): hx of depression Medications and Allergies Home Medications Medication Instructions Recorded Confirmed Type Pnv No.95/Ferrous Fum/Folic AC 1 tab PO DAILY 12/04/17 11/10/18 History [ Multivitamin Tablet] valACYclovir HCL [Valtrex] 1 tablet PO DAILY 11/06/18 11/10/18 History Allergies Allergy/AdvReac Type Severity Reaction Status Date / Time vancomycin Allergy Swelling Verified 11/10/18 10:09 Exam Osteopathic Statement: *. No significant issues noted on an osteopathic structural exam other than those noted in the History and Physical/Consult. Vital Signs Temp Pulse Resp BP Pulse Ox 11/10/18 10:10 98.4 F 103 H 16 145/89 100 Intake and Output 11/10/18 11/10/18 11/10/18 06:59 14:59 22:59 Other: # Voids 2 Weight 93.44 kg Targeted physical exam is performed tenolysis a well-nourished well-developed female in no acute distress, heart is noted to have a regular rate and rhythm she displays nonlabored breathing and lungs are clear to auscultation bilaterally the abdomen is gravid and appropriate for gestational age. heart tones are noted to be reactive and she has having irregular contractions. On exam she is /high Results Result Diagrams: 11/10/18 10:30 11/10/18 10:30 Abnormal Lab Results - Last 24 Hours (Table) 11/10/18 11/10/18 11/10/18 Range/Units 10:15 10:15 10:30 Hgb (11.4-16.0) gm/dL Hct (34.0-46.0) % BUN 5 L (7-17) mg/dL AST 48 H (14-36) U/L Lactate Dehydrogenase 647 H (313-618) U/L Urine Appearance Cloudy H (Clear) Urine Protein Trace H (Negative) Ur Leukocyte Esterase Moderate H (Negative) Calcium Oxalate Crystal Moderate H (None) /hpf Urine Bacteria Rare H (None) /hpf Urine Mucus Rare H (None) /hpf U Random Total Protein 28 H (<12) mg/dL 11/10/18 Range/Units 10:30 Hgb 10.6 L (11.4-16.0) gm/dL Hct 33.0 L (34.0-46.0) % BUN (7-17) mg/dL AST (14-36) U/L Lactate Dehydrogenase (313-618) U/L Urine Appearance (Clear) Urine Protein (Negative) Ur Leukocyte Esterase (Negative) Calcium Oxalate Crystal (None) /hpf Urine Bacteria (None) /hpf Urine Mucus (None) /hpf U Random Total Protein (<12) mg/dL Assessment and Plan (1) Term Current Visit: Yes Status: Acute Code(s): Z34.80 - ENCOUNTER FOR SUPRVSN OF NORMAL , UNSP TRIMESTER SNOMED Code(s): 51688053 (2) Gestational HTN Current Visit: Yes Status: Acute Code(s): O13.9 - GESTATIONAL HTN W/O SIGNIFICANT PROTEINURIA, UNSP TRIMESTER SNOMED Code(s): 012400275 Plan: Patient is admitted to labor and delivery for induction of labor with Pitocin. We'll order [facility] labs to evaluate liver enzymes/platelets/kidney function. Amniotomy when appropriate patient is unsure about epidural will let us know when she needs pain management options.
[2018-11-10] MEDS: PANTOPRAZOLE 40 MG/10 ML VIAL IVP SCH (20:16)
[2018-11-11] MEDS: BUTORPHANOL 1 MG/ML 1 ML VIAL IV PRN ×2 (00:01→10:17)
[2018-11-11] MEDS: LACTATED RINGERS 1,000 ML IV SCH ×3 (06:26→13:25)
[2018-11-11] MEDS ORDERED: fentaNYL (PF) 50 MCG/ML 5 ML AMP ONE (11:28)
[2018-11-11] MEDS ORDERED: ROPIVACAINE 5MG/ML 20ML VIAL ONE (11:28)
[2018-11-11] MEDS ORDERED: SODIUM CHLORIDE 0.9% 100 ML BAG ONE (11:28)
[2018-11-11] MEDS ORDERED: ROPIVACAINE 100 MG, fentaNYL (PF) 200 MCG in SODIUM CHLORIDE 0.9% 76 ML EPIDURAL ONE (12:00)
[2018-11-11] MEDS ORDERED: SIMETHICONE 80 MG CHEWABLE PO PRN (15:55)
[2018-11-11] MEDS ORDERED: diphenhydrAMINE 25 MG CAP PO PRN (15:55)
[2018-11-11] MEDS ORDERED: ACETAMINOPHEN TAB 325 MG TAB PO PRN (15:55)
[2018-11-11] MEDS ORDERED: WITCH HAZEL 1 EACH MED..PAD TOPICAL PRN (15:55)
[2018-11-11] MEDS ORDERED: HYDROCORTISONE 2.5% RECTAL CREAM 30 GM TUBE RECTAL PRN (15:55)
[2018-11-11] MEDS ORDERED: diphenhydrAMINE 50 MG/ML 1 ML VIAL IVP PRN ×2 (15:55)
[2018-11-11] MEDS ORDERED: LANOLIN CREAM 5 GM TUBE TOPICAL PRN (15:55)
[2018-11-11] MEDS ORDERED: ZOLPIDEM 5 MG TAB PO PRN (15:55)
[2018-11-11] MEDS ORDERED: diphenhydrAMINE 50 MG CAP PO PRN (15:55)
[2018-11-11] MEDS ORDERED: BENZOCAINE/MENTHOL SPRAY 1 GM/SPRAY AEROSOL TOPICAL PRN (15:55)
[2018-11-11] MEDS ORDERED: OXYTOCIN 20 UNITS/1000 ML NS 1,000 ML IV SCH (16:00)
--- NOTE | 2018-11-11 16:01 | P.PROBDLV ---
Vaginal Delivery Note - . Vaginal Delivery Note: This is a very pleasant 27-year-old 1 para 0 at 38 and 4 that presented to the office yesterday with complaints of headache blood pressure was 1 to be elevated at 140s over 90s significant swelling was noted also in a 6 pound weight gain over 1 week since her last visit. Patient was sent to labor and delivery for induction of labor secondary to gestational hypertension. Patient was started on Pitocin induction of labor and did minimal over the afternoon therefore the decision was made to stop Pitocin and start with Cervidil induction overnight. The Cervidil was removed patient was checked and found to be 2 cm/50/-3 amniotomy was performed as she was having regular painful contractions. Clear fluid was noted on amniotomy. Patient became uncomfortable eventually getting an epidural which was placed by anesthesia without difficulty. She progressed to complete began pushing and had a normal spontaneous vaginal delivery of a viable female at 1534, weight of 6 lbs. 14 oz. with Apgars of 8 and 9 at one and 5 minutes respectively. After a two-minute delayed in the cord was doubly clamped and cut the placenta was delivered spontaneously intact with a three-vessel cord. On inspection the patient's vaginal vault a second-degree midline perineal laceration was noted therefore this was repaired in usual fashion with 3-0 repeat. Afterwards no bleeding was noted hemostasis was appreciated. A rectal exam was performed and found to be normal in nature. The bladder was drained for 100 mL of clear yellow urine. Uterus was noted to be firm and below the umbilicus at this time. Patient and tolerated delivery well and are resting comfortably. All counts are correct 2.
[2018-11-11] MEDS: IBUPROFEN 600 MG TAB PO PRN (18:50)
[2018-11-11] MEDS ORDERED: Rhogam IMMUNE GLOBULIN 1,500 UNIT/1 ML IM ONE (19:06)
[2018-11-11] MEDS: PANTOPRAZOLE 40 MG/10 ML VIAL IVP SCH (20:43)
[2018-11-11] MEDS: OXYTOCIN 20 UNITS/1000 ML NS 1,000 ML IV SCH (20:43)
[2018-11-12] MEDS: SENNOSIDES-DOCUSATE SODIUM 1 EACH TAB PO SCH ×2 (00:07→08:00)
[2018-11-12] MEDS: IBUPROFEN 600 MG TAB PO PRN ×2 (05:30→12:21)
[2018-11-12 05:34] LABS: Basophils % (A) 0 %; Eosinophils # (A) 0.1 k/uL (0-0.7); Eosinophils % (A) 0 %; HCT 30.6 % (34.0-46.0); Hypochromasia Slight; Lymphocytes # (A) 2.3 k/uL (1.0-4.8); Lymphocytes % (A) 14 %; MCH 26.6 pg (25.0-35.0); MCHC 32.5 g/dL (31.0-37.0); MCV 81.6 fL (80.0-100.0); Monocytes # (A) 0.8 k/uL (0-1.0); Monocytes % (A) 5 %; Neutrophils % (A) 79 %; Platelet Count 284 k/uL (150-450); RBC 3.75 m/uL (3.80-5.40); RDW 14.5 % (11.5-15.5); WBC 16.4 k/uL (3.8-10.6)
[2018-11-12] MEDS ORDERED: PRENATAL VIT-IRON-FOLIC ACID 1 EACH CAP PO SCH (09:00)
--- NOTE | 2018-11-12 09:29 | P.DS ---
Providers Date of admission: 11/10/18 09:56 Expected date of discharge: 11/12/18 Attending physician: Alexandria Perez Primary care physician: Stated None Hospital Course: This is a 27-year-old white female 3 para 0020 EDC 11/20/2018 at 38-4/7 weeks' gestation. Patient presented for induction for mild headache, slightly elevated blood pressures, blood pressure 145/89 on admission. Please see dictated history and physical for details. otherwise unremarkable, rubella status immune, blood type A-, group B strep cultures negative. Patient underwent induction with oxytocin. She was allowed to rest on the first night, as no cervical change was noted. The following morning induction was restarted, artificial amniorrhexis revealed clear fluid. She did go on ultimately to deliver vaginally a liveborn female with scores of 8 and 9 at one and 5 minutes respectively. There was a small second-degree perineal laceration easily repaired. weighed 6 lbs. 14 oz. or 3120 g. Please see dictated delivery note for details. This morning the patient feels great. She is voiding, ambulating, passing flatus without difficulty. Vital signs are now stable and patient is afebrile, blood pressure 100-110 over 70s. Patient denies headache visual changes or right upper quadrant pain. She is breast-feeding without issue. I have given her prescription for a double electric breast pump. She has no edema, chest is clear, reflexes are normal. Fundus is firm and in the midline, symmetric and 18 week size. Breasts are nontender. Patient is being discharged home today in good condition. She will follow-up with Dr. aSleh in 2 weeks for a blood pressure check. I reminded her to call with any headache, visual changes, or right upper quadrant pain. She will call with any fevers shakes or chills, foul smelling or copious lochia. She will call with any pain or issues not alleviated by [id number] Advil or Aleve. Kirwin will follow-up with electric meter tester as recommended. Patient Condition at Discharge: Good Plan - Discharge Summary Discharge Rx Participant: No New Discharge Prescriptions: No Action Pnv No.95/Ferrous Fum/Folic AC [ Multivitamin Tablet] 1 tab PO DAILY valACYclovir HCL [Valtrex] 1 tablet PO DAILY Discharge Medication List Pnv No.95/Ferrous Fum/Folic AC [ Multivitamin Tablet] 1 tab PO DAILY [History] valACYclovir HCL [Valtrex] 1 tablet PO DAILY 11/06/18 [History] Follow up Appointment(s)/Referral(s): Alexandria Perez DO [Doctor of Osteopathic Medicine] - 2 Weeks
[2018-11-12 09:47] VITALS: BP 136/82; PULSE 79; RESP 18; TEMP 97.5
== END 2018-11-12 18:44 | disposition home or self-care (01) | DRG 807 ==
LOC: 4FBP 09:56
PROVIDERS: ADMIT Obstetrics & Gynecology Obstetrics; ATTEND Obstetrics & Gynecology Obstetrics
PROC: 3E033VJ Introduction of Other Hormone into Peripheral Vein, Percutaneous Approach (ICD-10-PCS; principal; 2018-11-10)
PROC: 3E0P7VZ Introduction of Hormone into Female Reproductive, Via Natural or Artificial Opening (ICD-10-PCS; principal; 2018-11-10)
PROC: 10907ZC Drainage of Amniotic Fluid, Therapeutic from Products of Conception, Via Natural or Artificial Opening (ICD-10-PCS; principal; 2018-11-10)
PROC: 00HU33Z Insertion of Infusion Device into Spinal Canal, Percutaneous Approach (ICD-10-PCS; 2018-11-11)
PROC: 3E0R3NZ Introduction of Analgesics, Hypnotics, Sedatives into Spinal Canal, Percutaneous Approach (ICD-10-PCS; 2018-11-11)
PROC: 10E0XZZ Delivery of Products of Conception, External Approach (ICD-10-PCS; 2018-11-11)
PROC: 0KQM0ZZ Repair Perineum Muscle, Open Approach (ICD-10-PCS; 2018-11-11)
DX: O13.4 Gestational [pregnancy-induced] hypertension without significant proteinuria, complicating childbirth (principal); Z37.0 Single live birth; Z3A.38 38 weeks gestation of pregnancy; Z81.8 Family history of other mental and behavioral disorders; O70.1 Second degree perineal laceration during delivery; Z88.1 Allergy status to other antibiotic agents
CPT/HCPCS: 81001; 82565; 82570; 83615; 84156; 84450; 84460; 84520; 84550; 85025; 85461; 85610; 85730; 86850; 86900; 86901

== ENCOUNTER 2020-09-04 15:30 | Emergency (ER) | payer MEDICAID ==
[2020-09-04 15:35] VITALS: TEMP 97
[2020-09-04 16:03] LABS: Appearance,Urine Cloudy (Clear); Bacteria,Urine Many /hpf; Bilirubin,Urine Negative (Negative); Blood,Urine Negative (Negative); Color,Urine Light Yellow; Glucose,Urine (UA) Negative (Negative); Ketones,Urine Trace (Negative); Leukocyte Esterase,Urine Large (Negative); Mucus,Urine Rare /hpf; Nitrite,Urine Negative (Negative); Protein,Urine Negative (Negative); RBC,Urine 5 /hpf (0-5); Specific Gravity,Urine 1.013 (1.001-1.035); Squamous Epithelial Cell,Urine 15 /hpf (0-4); Urobilinogen,Urine <2.0 mg/dL (<2.0); WBC,Urine 4 /hpf (0-5)
[2020-09-04] MEDS ORDERED: SODIUM CHLORIDE 0.9% 1,000 ML IV STA (16:22)
[2020-09-04] MEDS ORDERED: ONDANSETRON 4 MG/2 ML VIAL IVP STA (16:22)
--- NOTE | 2020-09-04 16:43 | ED ---
General Adult HPI - General Chief complaint: Abdominal Pain Stated complaint: abd pain Time Seen by Provider: 09/04/20 15:46 Source: patient, RN notes reviewed Mode of arrival: ambulatory Limitations: no limitations - History of Present Illness Initial comments: 29-year-old female with a past medical history of endometriosis presents to the emergency room for a chief complaint of right upper quadrant abdominal pain. Patient reports that this has been intermittent for the past 2 weeks. States she has had about 3 episodes were the pain is severe and lasts approximately 2 minutes. Patient states one was earlier today. States it is on the right upper quadrant. Patient denies eating worsening the pain. Patient did have some diarrhea earlier today. She has had nausea but denies vomiting. Patient did starta keto diet 4 weeks ago. Patient has no other complaints at this time including shortness of breath, chest pain, nausea or vomiting, headache, or visual changes. - Related Data Home Medications Medication Instructions Recorded Confirmed Pnv No.95/Ferrous Fum/Folic AC 1 tab PO DAILY 12/04/17 11/10/18 [ Multivitamin Tablet] valACYclovir HCL [Valtrex] 1 tablet PO DAILY 11/06/18 11/10/18 Allergies Allergy/AdvReac Type Severity Reaction Status Date / Time vancomycin Allergy Swelling Verified 09/04/20 15:31 Review of Systems ROS Statement: Those systems with pertinent positive or pertinent negative responses have been documented in the HPI. ROS Other: All systems not noted in ROS Statement are negative. Past Medical History Additional Past Medical History / Comment(s): endometriosis, genital herpes, History of Any Multi-Drug Resistant Organisms: None Reported Additional Past Surgical History / Comment(s): laparoscopy , Past Psychological History: Depression Smoking Status: Never smoker Past Alcohol Use History: None Reported Past Drug Use History: None Reported - Past Family History Mother History Unknown: Yes Family Medical History: No Reported History Additional Family Medical History / Comment(s): hx of depression General Exam Limitations: no limitations General appearance: alert, in no apparent distress Head exam: Present: atraumatic, normocephalic, normal inspection Eye exam: Present: normal appearance, PERRL, EOMI. Absent: scleral icterus, conjunctival injection, periorbital swelling ENT exam: Present: normal exam, mucous membranes moist Neck exam: Present: normal inspection, full ROM. Absent: tenderness, meningismus, lymphadenopathy Respiratory exam: Present: normal lung sounds bilaterally. Absent: respiratory distress, wheezes, rales, rhonchi, stridor Cardiovascular Exam: Present: regular rate, normal rhythm, normal heart sounds. Absent: systolic murmur, diastolic murmur, rubs, gallop, clicks GI/Abdominal exam: Present: soft, tenderness (Right upper quadrant tenderness. No lower abdominal tenderness. No left upper quadrant tenderness.), normal bowel sounds. Absent: distended, guarding, rebound, rigid Neurological exam: Present: alert Course Vital Signs 09/04/20 15:31 Temperature 97.0 F L Pulse Rate 101 H Respiratory 16 Rate Blood Pressure 115/65 O2 Sat by Pulse 99 Oximetry Medical Decision Making - Medical Decision Making Vitals are stable. CBC CMP is unremarkable. Amylase and lipase are within normal limits. Urinalysis is unremarkable. Patient has right upper quadrant tenderness without guarding or rebound. No other abdominal tenderness. U ltrasound negative for acute abnormality or cholelithiasis. At this time I discussed the patient and offered CAT scan however patient is feeling much better and would prefer discharge home to follow up with her doctor and surgeon. Abdominal tenderness has resolved. Patient reports that symptoms are completely improved. She will return here if she has any worsening symptoms such as fevers or worsening abdominal pain. - Lab Data Result diagrams: 09/04/20 16:32 09/04/20 16:32 Lab Results 09/04/20 09/04/20 09/04/20 Range/Units 15:52 15:53 16:32 WBC 7.7 (3.8-10.6) k/uL RBC 4.95 (3.80-5.40) m/uL Hgb 14.3 (11.4-16.0) gm/dL Hct 43.8 (34.0-46.0) % MCV 88.3 (80.0-100.0) fL MCH 28.8 (25.0-35.0) pg MCHC 32.6 (31.0-37.0) g/dL RDW 12.6 (11.5-15.5) % Plt Count 294 (150-450) k/uL Neutrophils % 65 % Lymphocytes % 28 % Monocytes % 4 % Eosinophils % 2 % Basophils % 1 % Neutrophils # 5.0 (1.3-7.7) k/uL Lymphocytes # 2.1 (1.0-4.8) k/uL Monocytes # 0.3 (0-1.0) k/uL Eosinophils # 0.1 (0-0.7) k/uL Basophils # 0.0 (0-0.2) k/uL Sodium (137-145) mmol/L Potassium (3.5-5.1) mmol/L Chloride (98-107) mmol/L Carbon Dioxide (22-30) mmol/L Anion Gap mmol/L BUN (7-17) mg/dL Creatinine (0.52-1.04) mg/dL Est GFR (CKD-EPI)AfAm (>60 ml/min/1.73 sqM) Est GFR (CKD-EPI)NonAf (>60 ml/min/1.73 sqM) Glucose (74-99) mg/dL Calcium (8.4-10.2) mg/dL Total Bilirubin (0.2-1.3) mg/dL AST (14-36) U/L ALT (4-34) U/L Alkaline Phosphatase (38-126) U/L Total Protein (6.3-8.2) g/dL Albumin (3.5-5.0) g/dL Amylase (30-110) U/L Lipase (23-300) U/L Urine Color Light Yellow Urine Appearance Cloudy H (Clear) Urine pH 6.0 (5.0-8.0) Ur Specific [place] 1.013 (1.001-1.035) Urine Protein Negative (Negative) Urine Glucose (UA) Negative (Negative) Urine Ketones Trace H (Negative) Urine Blood Negative (Negative) Urine Nitrite Negative (Negative) Urine Bilirubin Negative (Negative) Urine Urobilinogen <2.0 (<2.0) mg/dL Ur Leukocyte Esterase Large H (Negative) Urine RBC 5 (0-5) /hpf Urine WBC 4 (0-5) /hpf Ur Squamous Epith Cells 15 H (0-4) /hpf Urine Bacteria Many H (None) /hpf Urine Mucus Rare H (None) /hpf Urine HCG, Qual Not Detected (Not Detectd) 09/04/20 Range/Units 16:32 WBC (3.8-10.6) k/uL RBC (3.80-5.40) m/uL Hgb (11.4-16.0) gm/dL Hct (34.0-46.0) % MCV (80.0-100.0) fL MCH (25.0-35.0) pg MCHC (31.0-37.0) g/dL RDW (11.5-15.5) % Plt Count (150-450) k/uL Neutrophils % % Lymphocytes % % Monocytes % % Eosinophils % % Basophils % % Neutrophils # (1.3-7.7) k/uL Lymphocytes # (1.0-4.8) k/uL Monocytes # (0-1.0) k/uL Eosinophils # (0-0.7) k/uL Basophils # (0-0.2) k/uL Sodium 136 L (137-145) mmol/L Potassium 4.2 (3.5-5.1) mmol/L Chloride 106 (98-107) mmol/L Carbon Dioxide 21 L (22-30) mmol/L Anion Gap 9 mmol/L BUN 15 (7-17) mg/dL Creatinine 0.78 (0.52-1.04) mg/dL Est GFR (CKD-EPI)AfAm >90 (>60 ml/min/1.73 sqM) Est GFR (CKD-EPI)NonAf >90 (>60 ml/min/1.73 sqM) Glucose 94 (74-99) mg/dL Calcium 9.5 (8.4-10.2) mg/dL Total Bilirubin 0.6 (0.2-1.3) mg/dL AST 28 (14-36) U/L ALT 20 (4-34) U/L Alkaline Phosphatase 52 (38-126) U/L Total Protein 7.4 (6.3-8.2) g/dL Albumin 4.5 (3.5-5.0) g/dL Amylase 39 (30-110) U/L Lipase 83 (23-300) U/L Urine Color Urine Appearance (Clear) Urine pH (5.0-8.0) Ur Specific [place] (1.001-1.035) Urine Protein (Negative) Urine Glucose (UA) (Negative) Urine Ketones (Negative) Urine Blood (Negative) Urine Nitrite (Negative) Urine Bilirubin (Negative) Urine Urobilinogen (<2.0) mg/dL Ur Leukocyte Esterase (Negative) Urine RBC (0-5) /hpf Urine WBC (0-5) /hpf Ur Squamous Epith Cells (0-4) /hpf Urine Bacteria (None) /hpf Urine Mucus (None) /hpf Urine HCG, Qual (Not Detectd) Disposition Clinical Impression: Abdominal pain Disposition: HOME SELF-CARE Condition: Good Instructions (If sedation given, give patient instructions): Abdominal Pain (ED) Additional Instructions: Please follow up with primary care and surgeon in the next couple days. If you have any worsening symptoms such as worsening pain or fevers return to the emergency room. Is patient prescribed a controlled substance at d/c from ED?: No Referrals: Sandeep Muniz MD [Primary Care Provider] - 1-2 days Tiny Macario MD [STAFF PHYSICIAN] - 1-2 days Time of Disposition: 18:27
[2020-09-04 16:49] LABS: Basophils % (A) 1 %; Eosinophils # (A) 0.1 k/uL (0-0.7); Eosinophils % (A) 2 %; HCT 43.8 % (34.0-46.0); HGB 14.3 gm/dL (11.4-16.0); Lymphocytes # (A) 2.1 k/uL (1.0-4.8); Lymphocytes % (A) 28 %; MCH 28.8 pg (25.0-35.0); MCHC 32.6 g/dL (31.0-37.0); MCV 88.3 fL (80.0-100.0); Monocytes # (A) 0.3 k/uL (0-1.0); Monocytes % (A) 4 %; Neutrophils % (A) 65 %; Platelet Count 294 k/uL (150-450); RBC 4.95 m/uL (3.80-5.40); RDW 12.6 % (11.5-15.5); WBC 7.7 k/uL (3.8-10.6)
[2020-09-04 16:54] LABS: ALT 20 U/L (4-34); AST 28 U/L (14-36); African American GFR (CKD) >90 (>60 ml/min/1.73 sqM); Albumin 4.5 g/dL (3.5-5.0); Alkaline Phosphatase 52 U/L (38-126); Amylase 39 U/L (30-110); Anion Gap 9 mmol/L; Blood Urea Nitrogen 15 mg/dL (7-17); Calcium 9.5 mg/dL (8.4-10.2); Carbon Dioxide 21 mmol/L (22-30); Chloride 106 mmol/L (98-107); Glucose 94 mg/dL (74-99); Non-African American GFR(CKD) >90 (>60 ml/min/1.73 sqM); Potassium 4.2 mmol/L (3.5-5.1); Sodium 136 mmol/L (137-145); Total Bilirubin 0.6 mg/dL (0.2-1.3); Total Protein 7.4 g/dL (6.3-8.2)
[2020-09-04] MEDS ORDERED: KETOROLAC 15 MG/ML 1 ML VIAL IVP STA (17:27)
--- NOTE | 2020-09-04 17:55 | US ---
EXAMINATION TYPE: US gallbladder DATE OF EXAM: 09/04/2020 COMPARISON: NONE CLINICAL HISTORY: pain. RUQ pain, nausea EXAM MEASUREMENTS: Liver Length: 14.9 cm Gallbladder Wall: 0.3 cm CBD: 0.4 cm Right Kidney: 10.8 x 3.3 x 4.9 cm Pancreas: wnl Liver: wnl Gallbladder: no evidence of stones Evidence for sonographic Lux's sign: no CBD: limited evaluation, appears wnl Right Kidney: no evidence of hydronephrosis IMPRESSION: No sonographic evidence of acute abnormality or cholelithiasis.
[2020-09-04 19:41] VITALS: BP 105/68; PULSE 78; RESP 18
== END 2020-09-04 18:55 | disposition home or self-care (01) ==
LOC: EC 15:30
DX: R10.11 Right upper quadrant pain (principal); R11.0 Nausea; Z88.1 Allergy status to other antibiotic agents; Z86.19 Personal history of other infectious and parasitic diseases; Z87.42 Personal history of other diseases of the female genital tract; Z98.890 Other specified postprocedural states
CPT/HCPCS: 36415; 80053; 82150; 83690; 85025; 81001; 81025; 76705; 99284; 96374; 96375; 96361 ×2; J2405; J1885

== ENCOUNTER 2022-05-21 03:33 | Emergency (ER) | payer MEDICAID, OTHER ==
[2022-05-21 03:38] VITALS: TEMP 98
[2022-05-21] MEDS ORDERED: KETOROLAC 15 MG/ML 1 ML VIAL IVP STA (04:06)
[2022-05-21] MEDS ORDERED: MORPHINE SULFATE 4 MG/ML SYRINGE IV STA (04:06)
[2022-05-21] MEDS ORDERED: SODIUM CHLORIDE 0.9% 1,000 ML IV STA (04:06)
--- NOTE | 2022-05-21 04:06 | ED ---
Abdominal Pain HPI - General Chief Complaint: Abdominal Pain Stated Complaint: Abd Pain Time Seen by Provider: 05/21/22 03:42 Source: patient, RN notes reviewed, old records reviewed Mode of arrival: ambulatory Limitations: no limitations - History of Present Illness Initial Comments: This is a 31-year-old female DF for evaluation. Patient coming in for severe abdominal pain abdominal cramping. Positive nausea 2 episodes of vomiting she has history of endometriosis. Pain is with change in position. No fevers MD Complaint: abdominal pain -: hour(s) Location: suprapubic Radiation: suprapubic Migration to: suprapubic Severity: severe Severity scale (1-10): 10 Quality: sharp Consistency: constant Improves With: nothing Worsens With: nothing Context: recent surgery/procedure (history of endometriosis) Associated Symptoms: nausea Treatments Prior to Arrival: other (0) - Related Data Home Medications Medication Instructions Recorded Confirmed Pnv No.95/Ferrous Fum/Folic AC 1 tab PO DAILY 12/04/17 11/10/18 [ Multivitamin Tablet] valACYclovir HCL [Valtrex] 1 tablet PO DAILY 11/06/18 11/10/18 Allergies Allergy/AdvReac Type Severity Reaction Status Date / Time vancomycin Allergy Swelling Verified 09/04/20 15:31 Review of Systems ROS Statement: Those systems with pertinent positive or pertinent negative responses have been documented in the HPI. ROS Other: All systems not noted in ROS Statement are negative. Past Medical History Additional Past Medical History / Comment(s): endometriosis, genital herpes, History of Any Multi-Drug Resistant Organisms: None Reported Additional Past Surgical History / Comment(s): laparoscopy , Past Psychological History: Anxiety, Depression Smoking Status: Never smoker Past Alcohol Use History: None Reported Past Drug Use History: None Reported - Past Family History Mother History Unknown: Yes Family Medical History: No Reported History Additional Family Medical History / Comment(s): hx of depression General Exam Limitations: no limitations General appearance: alert, in no apparent distress Head exam: Present: atraumatic, normocephalic, normal inspection Eye exam: Present: normal appearance, PERRL, EOMI. Absent: scleral icterus, conjunctival injection, periorbital swelling ENT exam: Present: normal exam, mucous membranes moist Neck exam: Present: normal inspection. Absent: tenderness, meningismus, lymphadenopathy Respiratory exam: Present: normal lung sounds bilaterally. Absent: respiratory distress, wheezes, rales, rhonchi, stridor Cardiovascular Exam: Present: regular rate, normal rhythm, normal heart sounds. Absent: systolic murmur, diastolic murmur, rubs, gallop, clicks GI/Abdominal exam: Present: soft, tenderness, guarding, normal bowel sounds. Absent: distended, rebound, rigid Extremities exam: Present: normal inspection, full ROM, normal capillary refill. Absent: tenderness, pedal edema, joint swelling, calf tenderness Back exam: Present: normal inspection Neurological exam: Present: alert, oriented X3, CN II-XII intact Psychiatric exam: Present: normal affect, normal mood Skin exam: Present: warm, dry, intact, normal color. Absent: rash Course Vital Signs 05/21/22 05/21/22 03:33 06:32 Temperature 98 F Pulse Rate 69 60 Respiratory 20 16 Rate Blood Pressure 116/75 112/72 O2 Sat by Pulse 99 100 Oximetry - Reevaluation(s) Reevaluation #1: 05/21/22 Medical record is reviewed Reevaluation #2: 05/21/22 Patient pain is well-controlled Reevaluation #3: 05/21/22 Patient informed of results and questions are answered Medical Decision Making - Lab Data Result diagrams: 05/21/22 04:10 05/21/22 04:10 Lab Results 05/21/22 05/21/22 05/21/22 Range/Units 04:10 04:10 04:16 WBC 9.3 (3.8-10.6) k/uL RBC 4.41 (3.80-5.40) m/uL Hgb 13.0 (11.4-16.0) gm/dL Hct 38.5 (34.0-46.0) % MCV 87.2 (80.0-100.0) fL MCH 29.5 (25.0-35.0) pg MCHC 33.8 (31.0-37.0) g/dL RDW 13.2 (11.5-15.5) % Plt Count 327 (150-450) k/uL MPV 7.2 Neutrophils % 61 % Lymphocytes % 31 % Monocytes % 4 % Eosinophils % 2 % Basophils % 0 % Neutrophils # 5.7 (1.3-7.7) k/uL Lymphocytes # 2.9 (1.0-4.8) k/uL Monocytes # 0.4 (0-1.0) k/uL Eosinophils # 0.2 (0-0.7) k/uL Basophils # 0.0 (0-0.2) k/uL Sodium 135 L (137-145) mmol/L Potassium 4.2 (3.5-5.1) mmol/L Chloride 102 (98-107) mmol/L Carbon Dioxide 25 (22-30) mmol/L Anion Gap 8 mmol/L BUN 10 (7-17) mg/dL Creatinine 0.78 (0.52-1.04) mg/dL Est GFR (CKD-EPI)AfAm >90 (>60 ml/min/1.73 sqM) Est GFR (CKD-EPI)NonAf >90 (>60 ml/min/1.73 sqM) Glucose 104 H (74-99) mg/dL Calcium 9.1 (8.4-10.2) mg/dL Total Bilirubin 0.3 (0.2-1.3) mg/dL AST 24 (14-36) U/L ALT 20 (4-34) U/L Alkaline Phosphatase 51 (38-126) U/L Total Protein 6.8 (6.3-8.2) g/dL Albumin 4.1 (3.5-5.0) g/dL Amylase 43 (30-110) U/L Lipase 57 (23-300) U/L Urine Color Yellow Urine Appearance Clear (Clear) Urine pH 6.5 (5.0-8.0) Ur Specific [place] 1.021 (1.001-1.035) Urine Protein Negative (Negative) Urine Glucose (UA) Negative (Negative) Urine Ketones Negative (Negative) Urine Blood Negative (Negative) Urine Nitrite Negative (Negative) Urine Bilirubin Negative (Negative) Urine Urobilinogen <2.0 (<2.0) mg/dL Ur Leukocyte Esterase Moderate H (Negative) Urine RBC 2 (0-5) /hpf Urine WBC 2 (0-5) /hpf Ur Squamous Epith Cells 2 (0-4) /hpf Urine Mucus Rare H (None) /hpf Urine HCG, Qual (Not Detectd) 05/21/22 Range/Units 04:16 WBC (3.8-10.6) k/uL RBC (3.80-5.40) m/uL Hgb (11.4-16.0) gm/dL Hct (34.0-46.0) % MCV (80.0-100.0) fL MCH (25.0-35.0) pg MCHC (31.0-37.0) g/dL RDW (11.5-15.5) % Plt Count (150-450) k/uL MPV Neutrophils % % Lymphocytes % % Monocytes % % Eosinophils % % Basophils % % Neutrophils # (1.3-7.7) k/uL Lymphocytes # (1.0-4.8) k/uL Monocytes # (0-1.0) k/uL Eosinophils # (0-0.7) k/uL Basophils # (0-0.2) k/uL Sodium (137-145) mmol/L Potassium (3.5-5.1) mmol/L Chloride (98-107) mmol/L Carbon Dioxide (22-30) mmol/L Anion Gap mmol/L BUN (7-17) mg/dL Creatinine (0.52-1.04) mg/dL Est GFR (CKD-EPI)AfAm (>60 ml/min/1.73 sqM) Est GFR (CKD-EPI)NonAf (>60 ml/min/1.73 sqM) Glucose (74-99) mg/dL Calcium (8.4-10.2) mg/dL Total Bilirubin (0.2-1.3) mg/dL AST (14-36) U/L ALT (4-34) U/L Alkaline Phosphatase (38-126) U/L Total Protein (6.3-8.2) g/dL Albumin (3.5-5.0) g/dL Amylase (30-110) U/L Lipase (23-300) U/L Urine Color Urine Appearance (Clear) Urine pH (5.0-8.0) Ur Specific [place] (1.001-1.035) Urine Protein (Negative) Urine Glucose (UA) (Negative) Urine Ketones (Negative) Urine Blood (Negative) Urine Nitrite (Negative) Urine Bilirubin (Negative) Urine Urobilinogen (<2.0) mg/dL Ur Leukocyte Esterase (Negative) Urine RBC (0-5) /hpf Urine WBC (0-5) /hpf Ur Squamous Epith Cells (0-4) /hpf Urine Mucus (None) /hpf Urine HCG, Qual Not Detected (Not Detectd) - Radiology Data Radiology results: report reviewed (CT of the abdomen and pelvis positive for panniculitis mesenteric), image reviewed Disposition Clinical Impression: Mesenteric panniculitis Disposition: HOME SELF-CARE Condition: Good Instructions (If sedation given, give patient instructions): Mesenteric Adenitis (ED) Is patient prescribed a controlled substance at d/c from ED?: No Referrals: Sandeep Muniz MD [Primary Care Provider] - 1-2 days Time of Disposition: 06:30
[2022-05-21] MEDS ORDERED: ONDANSETRON 4 MG/2 ML VIAL IVP STA (04:24)
[2022-05-21 04:37] LABS: Basophils % (A) 0 %; Eosinophils # (A) 0.2 k/uL (0-0.7); Eosinophils % (A) 2 %; HCT 38.5 % (34.0-46.0); Lymphocytes # (A) 2.9 k/uL (1.0-4.8); Lymphocytes % (A) 31 %; MCH 29.5 pg (25.0-35.0); MCHC 33.8 g/dL (31.0-37.0); MCV 87.2 fL (80.0-100.0); Mean Platelet Volume 7.2; Monocytes # (A) 0.4 k/uL (0-1.0); Monocytes % (A) 4 %; Neutrophils # (A) 5.7 k/uL (1.3-7.7); Neutrophils % (A) 61 %; Platelet Count 327 k/uL (150-450); RBC 4.41 m/uL (3.80-5.40); RDW 13.2 % (11.5-15.5); WBC 9.3 k/uL (3.8-10.6)
[2022-05-21 04:44] LABS: Appearance,Urine Clear (Clear); Bilirubin,Urine Negative (Negative); Blood,Urine Negative (Negative); Color,Urine Yellow; Glucose,Urine (UA) Negative (Negative); Ketones,Urine Negative (Negative); Leukocyte Esterase,Urine Moderate (Negative); Nitrite,Urine Negative (Negative); PH, Urine 6.5 (5.0-8.0); Protein,Urine Negative (Negative); RBC,Urine 2 /hpf (0-5); Specific Gravity,Urine 1.021 (1.001-1.035); Urobilinogen,Urine <2.0 mg/dL (<2.0); WBC,Urine 2 /hpf (0-5)
[2022-05-21 04:45] LABS: Mucus,Urine Rare /hpf; Squamous Epithelial Cell,Urine 2 /hpf (0-4)
[2022-05-21 05:32] LABS: ALT 20 U/L (4-34); AST 24 U/L (14-36); African American GFR (CKD) >90 (>60 ml/min/1.73 sqM); Albumin 4.1 g/dL (3.5-5.0); Alkaline Phosphatase 51 U/L (38-126); Amylase 43 U/L (30-110); Anion Gap 8 mmol/L; Blood Urea Nitrogen 10 mg/dL (7-17); Calcium 9.1 mg/dL (8.4-10.2); Carbon Dioxide 25 mmol/L (22-30); Chloride 102 mmol/L (98-107); Glucose 104 mg/dL (74-99); Lipase 57 U/L (23-300); Non-African American GFR(CKD) >90 (>60 ml/min/1.73 sqM); Potassium 4.2 mmol/L (3.5-5.1); Sodium 135 mmol/L (137-145); Total Bilirubin 0.3 mg/dL (0.2-1.3); Total Protein 6.8 g/dL (6.3-8.2)
--- NOTE | 2022-05-21 06:10 | CT ---
EXAMINATION TYPE: CT abdomen pelvis wo con DATE OF EXAM: 05/21/2022 HISTORY: Lower abdominal pain this morning. CT DLP: 658.9 mGycm. Automated Exposure Control for Dose Reduction was Utilized. TECHNIQUE: CT scan of the abdomen and pelvis is performed without oral or IV contrast. COMPARISON: CT October 30, 2017 FINDINGS: Within the limitations of a non-contrast study, the following observations are made. LUNG BASES: No significant abnormality is appreciated. LIVER/GB: No significant abnormality is appreciated. PANCREAS: No significant abnormality is seen. SPLEEN: No significant abnormality is seen. ADRENALS: No significant abnormality is seen. KIDNEYS: No renal stones or hydronephrosis is present bilaterally. BOWEL: Normal-appearing appendix noted. No suspicious bowel dilatation. GENITAL ORGANS: Anteverted uterus. Single inferior left-sided pelvic phlebolith axial image 131. LYMPH NODES: No greater than 1cm abdominal or pelvic lymph nodes are appreciated. Mild mesenteric catarino ma is present in the upper to mid abdomen. OSSEOUS STRUCTURES: No significant abnormality is seen. OTHER: No significant additional abnormality is seen. IMPRESSION: Mild yari mesentery appearance is nonspecific finding, differential includes mesenteric panniculitis. No other suspicious findings are evident. No bowel obstruction is seen.
[2022-05-21] MEDS ORDERED: ONDANSETRON 4 MG ODT STARTER PACK 2 TAB BTL PO STA (06:18)
[2022-05-21] MEDS ORDERED: IBUPROFEN 600 MG STARTER PACK 4 TAB BTL PO STA (06:18)
[2022-05-21 06:34] VITALS: BP 112/72; PULSE 60; RESP 16
== END 2022-05-21 06:33 | disposition home or self-care (01) ==
LOC: EC 03:33
DX: K65.4 Sclerosing mesenteritis (principal); Z88.1 Allergy status to other antibiotic agents
CPT/HCPCS: 36415; 80053; 82150; 83690; 85025; 81001; 81025; 74176; 99284; 96374; 96375; 96376; 96361; J2405; J1885; S0119

== ENCOUNTER → 2025-02-21 | Outpatient (CLI) | payer OTHER ==
[2025-02-21 15:24] VITALS: BP 98/64; PULSE 74; RESP 16; TEMP 98
--- NOTE | 2025-02-21 15:52 | P.SLEEP ---
History of Present Illness DATE: 02/21/2025 CONSULTATION/NEW PATIENT EVALUATION HISTORY OF PRESENT ILLNESS/SLEEP-WAKE EVALUATION: 54-year-old lady had been ev aluated in the sleep center for possible obstructive sleep apnea hypopnea syndrome. SLEEP SCHEDULE: Usually sleep schedule from 10 AM to 4 PM on working days and from 9 PM to 7 AM on weekend, patient works at dining room server. FALLING ASLEEP: Usually no significant problems with falling asleep, although patient has TV set in bedroom. DURING SLEEP: Patient sleeps in different position with snoring, restless leg symptoms, and awakenings from sleep several times with up to 3 episodes of nocturia. No history of hypnogogical hallucinations, sleep paralysis, or cataplexy. DURING THE DAY/WAKE STATE: Can feel sleepiness during the day, has problems with memory, concentration. [place] sleepiness scale is significantly increased to 15. Patient may take up to 2 naps. PAST MEDICAL HISTORY: Anxiety, depression, acid reflux, endometriosis. PAST SURGICAL HISTORY: Laparoscopy for endometriosis in 2012. MEDICATIONS: Please see below. SOCIAL HISTORY: Please see below. FAMILY HISTORY: Please see below. REVIEW OF SYSTEMS: Loud snoring, multiple awakenings from sleep, sleepiness. No fevers. No double vision. No recent chest pain. No shortness of breath. No abdominal pain. No bleeding episodes. No blood in urine. No seizure episodes. PHYSICAL EXAMINATION: GENERAL: A pleasant patient without any distress. VITAL SIGNS:, Weight 165.8 pounds, BMI 28.0. HEENT: PERRLA, EOMI. Evaluation of oropharynx showed tongue protrudes midline, low position of soft palate Mallampati, short distance between soft palate and posterior pharyngeal wall, restriction of nasal breathing. NECK: Supple. No JVD. Thyroid is not palpable. 14.3 inches in circumference. LUNGS: Clear to percussion and to auscultation. Good air exchange. No wheezing or rhonchi. HEART: S1, S2 regular. No murmurs, gallops or rubs. ABDOMEN: Soft and nontender. Bowel sounds are present. No organomegaly appreciated. EXTREMITIES: No clubbing or cyanosis. FINANCIAL ADVISER: Awake, alert, and oriented x3. Cranial nerves 2 to 7 intact. There is no fasciculation or atrophy noted. No focal deficits observed. ASSESSMENT: 1. Loud snoring, multiple awakenings from sleep, short distance between soft palate and posterior pharyngeal wall, restriction of nasal breathing, sleepiness with [place] Sleepiness Scale 15. Obstructive sleep apnea hypopnea syndrome. 2. [place] sleepiness scale significantly increased to 15. 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 Hypersomnia and narcolepsy type II also in differential diagnosis. 3. Restless leg symptoms. 4. Acid reflux. 5 anxiety. 6 . Depression. 7. History of endometriosis. PLAN: 1. Home sleep apnea test for evaluation of patient's breathing during sleep. 2. Following plan after reading sleep study. 3. Preferable position during sleep on the side. 4. No driving if patient feels any sleepiness. Patient is aware of civil and criminal liability for unsafe driving. 5. Sleep hygiene with regular sleep time for at least 7.5-8 hours. 6. Watching weight. Thank you very much for referring this patient for consultation. Sincerely, Dominguez Hernandez MD, PhD, FAASM. Diplomat of [place] [employer], Sleep Medicine Board by [place] [employer] [place] [employer] [facility] [place] cc: Estephanie Baird PA-C Past Medical History Past Medical History: GERD/Reflux Additional Past Medical History / Comment(s): endometriosis, genital herpes, depression/anxiety, mesenteric panniculitis, restless legs - undiagnosed, snoring History of Any Multi-Drug Resistant Organisms: None Reported Additional Past Surgical History / Comment(s): laparoscopy , Past Psychological History: Anxiety, Depression Smoking Status: Vaper Past Alcohol Use History: None Reported Past Drug Use History: None Reported - Past Family History Mother History Unknown: Yes Family Medical History: No Reported History Additional Family Medical History / Comment(s): hx of depression, ulcers, Crohns (Patients 6 year old daughter - reflux - on Pepcid) Father Family Medical History: Hypertension Medications and Allergies Home Medications Medication Instructions Recorded Confirmed Type Pnv No.95/Ferrous Fum/Folic AC 1 tab PO DAILY 12/04/17 11/10/18 History [ Multivitamin Tablet] valACYclovir HCL [Valtrex] 1 tablet PO DAILY 11/06/18 11/10/18 History FLUoxetine HCL [PROzac] 40 mg PO DAILY 02/21/25 02/21/25 History Omeprazole 20 mg PO DIRECTED 02/21/25 02/21/25 History Allergies Allergy/AdvReac Type Severity Reaction Status Date / Time vancomycin Allergy Swelling Verified 09/04/20 15:31 Physical Exam Vitals: Vital Signs Temp Pulse Resp BP Pulse Ox 02/21/25 15:21 98.0 F 74 16 98/64 98 Intake and Output 02/21/25 02/21/25 02/21/25 06:59 14:59 22:59 Other: Weight 75.07 kg Sleep Note - Sleep Data ESS Total: 15 - Sleep Note Sleep Note: Temperature: 98.0 F Pulse Rate: 74 Respiratory Rate: 16 Blood Pressure: 98/64 SpO2: 98 Height: 5 ft 4.5 in Weight: 75.07 kg BMI: Neck Circumference: 14.3
== END ==
LOC: 3 N SLEEP 14:59
PROVIDERS: ATTEND Internal Medicine
DX: G47.10 Hypersomnia, unspecified (principal); K21.9 Gastro-esophageal reflux disease without esophagitis; F41.9 Anxiety disorder, unspecified; F32.A Depression, unspecified; G25.81 Restless legs syndrome; Z87.42 Personal history of other diseases of the female genital tract; Z88.1 Allergy status to other antibiotic agents
CPT/HCPCS: 99211